=== PATIENT | male | born 1940 | race Caucasian/White ===

== ENCOUNTER → 2017-09-13 09:37 | Outpatient (CLI) | payer MEDICARE, OTHER, SELFPAY ==
[2017-09-13 13:38] LABS: Absolute Neutrophil Count 7.4 X10^3/uL (2.0-7.7); Basophil# 0.03 X10^3/uL; Basophil% 0.3 % (0-1); Eosinophil# 0.31 X10^3/uL; Hematocrit 42.7 % (40-54); Hemoglobin 14.2 g/dl (13.0-16.5); Lymphocyte % 16.5 % (19-41); Mean Corp Hgb Conc 33.3 g/gl (32-36); Mean Corpuscular Hgb 30.2 pg (27.0-32.0); Mean Corpuscular Volume 90.9 fL (80-94); Mean Platelet Vol. 10.3 fl (6.2-12.0); Monocyte# 0.77 X10^3/uL; Monocyte% 7.5 % (0-10); Neutrophil # 7.44 X10^3/uL (2.7-7.7); Neutrophil % 72.2 % (47-70); Platelet Count 278 K/mm3 (150-450); RBC Distribution Width CV 13.3 % (11.6-14.6); RBC Distribution Width SD 44.3 fl (35.1-43.9); White Blood Count 10.3 K/mm3 (4.4-11.0)
[2017-09-13 13:41] LABS: POSITIVE COUNT NO; POSITIVE DIFFERENTIAL NO; POSITIVE MORPHOLOGY NO
[2017-09-13 14:14] LABS: ALB/GLOB Ratio 1.1 RATIO (0.9-2.4); AST(SGOT) 21 U/L (15-37); Alanine Aminotransfer ALT/SGPT 31 U/L (16-61); Albumin, Serum 3.6 g/dL (3.2-5.0); Alkaline Phosphatase 76 U/L (45-117); Anion Gap 9 (5-15); BUN 14 mg/dL (7-18); BUN/Creat Ratio 12.4 RATIO (10-20); Calcium,Total 9.2 mg/dL (8.5-10.1); Chloride 101 mmol/L (98-107); Creatinine, Serum 1.13 mg/dL (0.70-1.30); EST Glomerular Filtration Rate 67 mL/min (>60); Est Glom Filt Rate - Afr Amer 81 mL/min (>60); Globulin 3.4 g/dL (2.2-4.2); Glucose 97 mg/dL (74-106); Potassium 3.9 mmol/L (3.5-5.1); Sodium Level 138 mmol/L (136-145); Thyroid Stim Hormone (TSH) 3.09 uIU/mL (0.358-3.74)
[2017-09-14 09:40] LABS: Vitamin D,25 Hydroxy 29.3 ng/mL (29.95-100.01)
== END ==
PROVIDERS: Family Provider Family Medicine Geriatric Medicine; PCP Family Medicine Geriatric Medicine; Visit Provider Family Medicine Geriatric Medicine
DX: I10 Essential (primary) hypertension (principal); E55.9 Vitamin D deficiency, unspecified
CPT/HCPCS: 36415; 80053; 82306; 84443; 85025

== ENCOUNTER → 2018-03-20 12:09 | Outpatient (CLI) | payer MEDICARE, OTHER, SELFPAY ==
[2018-03-20 13:22] LABS: Absolute Lymphocyte Count 1.35 X10^3/ul (0.83-4.51); Basophil# 0.02 X10^3/uL; Basophil% 0.2 % (0-1); Eosinophil# 0.12 X10^3/uL; Eosinophils% 1.5 % (0-5); Hematocrit 42.2 % (40-54); Hemoglobin 14.1 g/dl (13.0-16.5); Lymphocyte # 1.35 X10^3/ul (4.0); Lymphocyte % 16.7 % (19-41); Mean Corp Hgb Conc 33.4 g/gl (32-36); Mean Corpuscular Hgb 29.6 pg (27.0-32.0); Mean Corpuscular Volume 88.5 fL (80-94); Mean Platelet Vol. 10.4 fl (6.2-12.0); Monocyte% 7.4 % (0-10); Neutrophil # 5.99 X10^3/uL (2.7-7.7); Neutrophil % 74.1 % (47-70); Platelet Count 277 K/mm3 (150-450); RBC Distribution Width SD 41.8 fl (35.1-43.9); Red Blood Count 4.77 M/mm3 (4.6-6.2); White Blood Count 8.1 K/mm3 (4.4-11.0)
[2018-03-20 13:28] LABS: POSITIVE COUNT NO; POSITIVE DIFFERENTIAL NO; POSITIVE MORPHOLOGY NO
[2018-03-20 13:40] LABS: Vitamin D,25 Hydroxy 40.2 ng/mL (29.95-100.01)
[2018-03-20 13:41] LABS: ALB/GLOB Ratio 1.2 RATIO (0.9-2.4); AST(SGOT) 27 U/L (15-37); Alanine Aminotransfer ALT/SGPT 30 U/L (16-61); Albumin, Serum 3.8 g/dL (3.2-5.0); Alkaline Phosphatase 80 U/L (45-117); Anion Gap 9 (5-15); BUN 15 mg/dL (7-18); BUN/Creat Ratio 11.9 RATIO (10-20); Calcium,Total 9.3 mg/dL (8.5-10.1); Chloride 102 mmol/L (98-107); Creatinine, Serum 1.26 mg/dL (0.70-1.30); EST Glomerular Filtration Rate 59 mL/min (>60); Est Glom Filt Rate - Afr Amer 71 mL/min (>60); Globulin 3.3 g/dL (2.2-4.2); Glucose 94 mg/dL (74-106); Potassium 4.4 mmol/L (3.5-5.1); Protein, Total 7.1 g/dL (6.4-8.2); Sodium Level 138 mmol/L (136-145); Thyroid Stim Hormone (TSH) 3.21 uIU/mL (0.358-3.74)
== END ==
PROVIDERS: Family Provider Family Medicine Geriatric Medicine; PCP Family Medicine Geriatric Medicine; Visit Provider Family Medicine Geriatric Medicine
DX: I10 Essential (primary) hypertension (principal); E55.9 Vitamin D deficiency, unspecified
CPT/HCPCS: 36415; 80053; 82306; 84443; 85025

== ENCOUNTER → 2018-09-25 12:15 | Outpatient (CLI) | payer MEDICARE, OTHER, SELFPAY ==
[2016-06-30 20:22] VITALS: BMI 19.2
[2018-09-25 15:18] LABS: Absolute Lymphocyte Count 1.22 X10^3/ul (0.83-4.51); Absolute Neutrophil Count 5.8 X10^3/uL (2.0-7.7); Basophil# 0.02 X10^3/uL; Basophil% 0.3 % (0-1); Eosinophil# 0.16 X10^3/uL; Hematocrit 41.1 % (40-54); Hemoglobin 13.3 g/dl (13.0-16.5); Lymphocyte # 1.22 X10^3/ul (4.0); Lymphocyte % 15.5 % (19-41); Mean Corp Hgb Conc 32.4 g/gl (32-36); Mean Corpuscular Hgb 29.4 pg (27.0-32.0); Mean Corpuscular Volume 90.7 fL (80-94); Mean Platelet Vol. 10.2 fl (6.2-12.0); Monocyte# 0.66 X10^3/uL; Monocyte% 8.4 % (0-10); Neutrophil # 5.79 X10^3/uL (2.7-7.7); Neutrophil % 73.5 % (47-70); Platelet Count 286 K/mm3 (150-450); RBC Distribution Width CV 13.1 % (11.6-14.6); RBC Distribution Width SD 43.1 fl (35.1-43.9); Red Blood Count 4.53 M/mm3 (4.6-6.2); White Blood Count 7.9 K/mm3 (4.4-11.0)
[2018-09-25 15:23] LABS: POSITIVE COUNT NO; POSITIVE DIFFERENTIAL NO; POSITIVE MORPHOLOGY NO
[2018-09-25 15:38] LABS: Vitamin D,25 Hydroxy 32.3 ng/mL (29.95-100.01)
[2018-09-25 15:49] LABS: ALB/GLOB Ratio 1.3 RATIO (0.9-2.4); AST(SGOT) 21 U/L (15-37); Alanine Aminotransfer ALT/SGPT 26 U/L (16-61); Albumin, Serum 3.8 g/dL (3.2-5.0); Alkaline Phosphatase 80 U/L (45-117); Anion Gap 8 (5-15); BUN 17 mg/dL (7-18); BUN/Creat Ratio 13.1 RATIO (10-20); Calcium,Total 9.2 mg/dL (8.5-10.1); Chloride 105 mmol/L (98-107); EST Glomerular Filtration Rate 57 mL/min (>60); Est Glom Filt Rate - Afr Amer 68 mL/min (>60); Glucose 72 mg/dL (74-106); Potassium 4.5 mmol/L (3.5-5.1); Protein, Total 6.8 g/dL (6.4-8.2); Sodium Level 141 mmol/L (136-145); Thyroid Stim Hormone (TSH) 2.25 uIU/mL (0.358-3.74)
== END ==
PROVIDERS: Family Provider Family Medicine Geriatric Medicine; PCP Family Medicine Geriatric Medicine; Visit Provider Family Medicine Geriatric Medicine
DX: I10 Essential (primary) hypertension (principal); E55.9 Vitamin D deficiency, unspecified
CPT/HCPCS: 36415; 80053; 82306; 84443; 85025

== ENCOUNTER → 2019-03-23 09:40 | Outpatient (CLI) | payer MEDICARE, OTHER, SELFPAY ==
[2019-03-23 12:57] LABS: Absolute Lymphocyte Count 1.18 X10^3/uL (0.83-4.51); Absolute Neutrophil Count 4.8 X10^3/uL (2.0-7.7); Basophil# 0.03 X10^3/uL; Basophil% 0.4 % (0-1); Eosinophil# 0.14 X10^3/uL; Eosinophils% 2.1 % (0-5); Hematocrit 40.9 % (40-54); Hemoglobin 13.4 g/dL (13.0-16.5); Lymphocyte # 1.18 X10^3/ul (4.0); Lymphocyte % 17.6 % (19-41); Mean Corp Hgb Conc 32.8 g/dL (32-36); Mean Corpuscular Hgb 29.8 pg (27.0-32.0); Mean Corpuscular Volume 91.1 fL (80-94); Mean Platelet Vol. 10.5 fl (6.2-12.0); Monocyte# 0.51 X10^3/uL; Monocyte% 7.6 % (0-10); NRBC Flagged by Analyzer 0 % (0-5); Neutrophil # 4.82 X10^3/uL (2.7-7.7); Platelet Count 223 K/mm3 (150-450); RBC Distribution Width CV 12.8 % (11.6-14.6); RBC Distribution Width SD 42.7 fl (35.1-43.9); Red Blood Count 4.49 M/mm3 (4.6-6.2); White Blood Count 6.7 K/mm3 (4.4-11.0)
[2019-03-23 13:24] LABS: Vitamin D,25 Hydroxy 40.3 ng/mL (29.95-100.01)
[2019-03-23 14:01] LABS: ALB/GLOB Ratio 1.3 RATIO (0.9-2.4); AST(SGOT) 27 U/L (15-37); Alanine Aminotransfer ALT/SGPT 32 U/L (16-61); Albumin, Serum 3.8 g/dL (3.2-5.0); Alkaline Phosphatase 75 U/L (45-117); Anion Gap 7 (5-15); BUN 22 mg/dL (7-18); BUN/Creat Ratio 16.1 RATIO (10-20); Calcium,Total 9.4 mg/dL (8.5-10.1); Chloride 108 mmol/L (98-107); Creatinine, Serum 1.37 mg/dL (0.70-1.30); EST Glomerular Filtration Rate 53 mL/min (>60); Est Glom Filt Rate - Afr Amer 64 mL/min (>60); Glucose 100 mg/dL (74-106); Potassium 4.3 mmol/L (3.5-5.1); Protein, Total 6.8 g/dL (6.4-8.2); Sodium Level 141 mmol/L (136-145); Thyroid Stim Hormone (TSH) 3.12 uIU/mL (0.358-3.74)
== END ==
PROVIDERS: Family Provider Family Medicine Geriatric Medicine; PCP Family Medicine Geriatric Medicine; Visit Provider Family Medicine Geriatric Medicine
DX: I10 Essential (primary) hypertension (principal); E55.9 Vitamin D deficiency, unspecified
CPT/HCPCS: 36415; 80053; 82306; 84443; 85025

== ENCOUNTER → 2019-09-28 09:37 | Outpatient (CLI) | payer MEDICARE, OTHER, SELFPAY ==
[2016-06-30 20:22] VITALS: BMI 19.2
[2019-09-28 10:03] LABS: Absolute Lymphocyte Count 1.65 X10^3/uL (0.83-4.51); Absolute Neutrophil Count 6.6 X10^3/uL (2.0-7.7); Basophil# 0.04 X10^3/uL; Basophil% 0.4 % (0-1); Eosinophil# 0.16 X10^3/uL; Eosinophils% 1.7 % (0-5); Hematocrit 42.8 % (40-54); Hemoglobin 14.3 g/dL (13.0-16.5); Lymphocyte # 1.65 X10^3/ul (4.0); Lymphocyte % 17.9 % (19-41); Mean Corp Hgb Conc 33.4 g/dL (32-36); Mean Corpuscular Hgb 30.6 pg (27.0-32.0); Mean Corpuscular Volume 91.6 fL (80-94); Monocyte# 0.71 X10^3/uL; Monocyte% 7.7 % (0-10); NRBC Flagged by Analyzer 0 % (0-5); Neutrophil # 6.63 X10^3/uL (2.7-7.7); Platelet Count 255 K/mm3 (150-450); RBC Distribution Width SD 42.8 fl (35.1-43.9); Red Blood Count 4.67 M/mm3 (4.6-6.2); White Blood Count 9.2 K/mm3 (4.4-11.0)
[2019-09-28 10:37] LABS: ALB/GLOB Ratio 1.3 RATIO (0.9-2.4); AST(SGOT) 25 U/L (15-37); Alanine Aminotransfer ALT/SGPT 27 U/L (16-61); Alkaline Phosphatase 71 U/L (45-117); Anion Gap 5 (5-15); BUN 17 mg/dL (7-18); BUN/Creat Ratio 12.2 RATIO (10-20); Calcium,Total 9.6 mg/dL (8.5-10.1); Chloride 106 mmol/L (98-107); Creatinine, Serum 1.39 mg/dL (0.70-1.30); EST Glomerular Filtration Rate 52 mL/min (>60); Est Glom Filt Rate - Afr Amer 63 mL/min (>60); Glucose 102 mg/dL (74-106); Potassium 4.8 mmol/L (3.5-5.1); Sodium Level 139 mmol/L (136-145); Thyroid Stim Hormone (TSH) 3.73 uIU/mL (0.358-3.74)
== END ==
PROVIDERS: PCP Family Medicine Geriatric Medicine; Referring Provider Family Medicine Geriatric Medicine; Visit Provider Family Medicine Geriatric Medicine
DX: I10 Essential (primary) hypertension (principal); E55.9 Vitamin D deficiency, unspecified
CPT/HCPCS: 36415; 80053; 82306; 84443; 85025

== ENCOUNTER → 2020-03-28 09:46 | Outpatient (CLI) | payer MEDICARE, OTHER, SELFPAY ==
[2016-06-30 20:22] VITALS: BMI 19.2
[2020-03-28 12:35] LABS: Absolute Lymphocyte Count 1.08 X10^3/uL (0.83-4.51); Basophil# 0.03 X10^3/uL; Basophil% 0.4 % (0-1); Eosinophils% 2.9 % (0-5); Hematocrit 40.9 % (40-54); Hemoglobin 13.1 g/dL (13.0-16.5); Lymphocyte # 1.08 X10^3/ul (4.0); Lymphocyte % 15.7 % (19-41); Mean Corpuscular Hgb 29.6 pg (27.0-32.0); Mean Corpuscular Volume 92.5 fL (80-94); Mean Platelet Vol. 10.3 fl (6.2-12.0); Monocyte# 0.57 X10^3/uL; Monocyte% 8.3 % (0-10); NRBC Flagged by Analyzer 0 % (0-5); Neutrophil # 4.99 X10^3/uL (2.7-7.7); Neutrophil % 72.3 % (47-70); Platelet Count 254 K/mm3 (150-450); RBC Distribution Width CV 12.9 % (11.6-14.6); RBC Distribution Width SD 43.7 fl (35.1-43.9); Red Blood Count 4.42 M/mm3 (4.6-6.2); White Blood Count 6.9 K/mm3 (4.4-11.0)
[2020-03-28 12:45] LABS: Vitamin D,25 Hydroxy 44.8 ng/mL
[2020-03-28 13:03] LABS: ALB/GLOB Ratio 1.2 RATIO (0.9-2.4); AST(SGOT) 23 U/L (15-37); Alanine Aminotransfer ALT/SGPT 27 U/L (16-61); Albumin, Serum 3.7 g/dL (3.2-5.0); Alkaline Phosphatase 74 U/L (45-117); Anion Gap 3 (5-15); BUN 21 mg/dL (7-18); BUN/Creat Ratio 15.1 RATIO (10-20); Calcium,Total 9.2 mg/dL (8.5-10.1); Chloride 108 mmol/L (98-107); Creatinine, Serum 1.39 mg/dL (0.70-1.30); EST Glomerular Filtration Rate 52 mL/min (>60); Est Glom Filt Rate - Afr Amer 63 mL/min (>60); Glucose 88 mg/dL (74-106); Potassium 4.7 mmol/L (3.5-5.1); Protein, Total 6.7 g/dL (6.4-8.2); Sodium Level 139 mmol/L (136-145); Thyroid Stim Hormone (TSH) 2.33 uIU/mL (0.358-3.74)
== END ==
PROVIDERS: PCP Family Medicine Geriatric Medicine; Visit Provider Family Medicine Geriatric Medicine
DX: I10 Essential (primary) hypertension (principal); E55.9 Vitamin D deficiency, unspecified
CPT/HCPCS: 36415; 80053; 82306; 84443; 85025

== ENCOUNTER → 2020-09-26 09:06 | Outpatient (CLI) | payer MEDICARE, OTHER, SELFPAY ==
[2016-06-30 20:22] VITALS: BMI 19.2
[2020-09-26 12:43] LABS: Absolute Lymphocyte Count 1.26 X10^3/uL (0.83-4.51); Absolute Neutrophil Count 9.7 X10^3/uL (2.0-7.7); Basophil# 0.03 X10^3/uL; Basophil% 0.3 % (0-1); Eosinophil# 0.07 X10^3/uL; Eosinophils% 0.6 % (0-5); Hematocrit 43.1 % (40-54); Hemoglobin 14.1 g/dL (13.0-16.5); Lymphocyte # 1.26 X10^3/ul (4.0); Lymphocyte % 10.6 % (19-41); Mean Corp Hgb Conc 32.7 g/dL (32-36); Mean Corpuscular Hgb 29.1 pg (27.0-32.0); Mean Platelet Vol. 10.4 fl (6.2-12.0); Monocyte# 0.77 X10^3/uL; Monocyte% 6.5 % (0-10); NRBC Flagged by Analyzer 0 % (0-5); Neutrophil # 9.74 X10^3/uL (2.7-7.7); Neutrophil % 81.5 % (47-70); Platelet Count 310 K/mm3 (150-450); RBC Distribution Width CV 12.5 % (11.6-14.6); Red Blood Count 4.84 M/mm3 (4.6-6.2); White Blood Count 11.9 K/mm3 (4.4-11.0)
[2020-09-26 13:15] LABS: Vitamin D,25 Hydroxy 35.6 ng/mL
[2020-09-26 13:17] LABS: ALB/GLOB Ratio 1.2 RATIO (0.9-2.4); AST(SGOT) 25 U/L (15-37); Alanine Aminotransfer ALT/SGPT 35 U/L (16-61); Albumin, Serum 3.8 g/dL (3.2-5.0); Alkaline Phosphatase 84 U/L (45-117); Anion Gap 8 (5-15); BUN 18 mg/dL (7-18); BUN/Creat Ratio 15.3 RATIO (10-20); Calcium,Total 9.5 mg/dL (8.5-10.1); Chloride 105 mmol/L (98-107); Creatinine, Serum 1.18 mg/dL (0.70-1.30); EST Glomerular Filtration Rate 63 mL/min (>60); Est Glom Filt Rate - Afr Amer 76 mL/min (>60); Globulin 3.2 g/dL (2.2-4.2); Glucose 103 mg/dL (74-106); Potassium 4.5 mmol/L (3.5-5.1); Sodium Level 137 mmol/L (136-145); Thyroid Stim Hormone (TSH) 3.33 uIU/mL (0.358-3.74)
== END ==
PROVIDERS: PCP Family Medicine Geriatric Medicine; Visit Provider Family Medicine Geriatric Medicine
DX: I10 Essential (primary) hypertension (principal); E55.9 Vitamin D deficiency, unspecified
CPT/HCPCS: 36415; 80053; 82306; 84443; 85025

== ENCOUNTER → 2021-03-30 09:43 | Outpatient (CLI) | payer MEDICARE, OTHER, SELFPAY ==
[2021-03-30 11:45] LABS: Absolute Lymphocyte Count 1.61 X10^3/uL (0.83-4.51); Basophil# 0.04 X10^3/uL; Basophil% 0.5 % (0-1); Eosinophil# 0.27 X10^3/uL; Eosinophils% 3.1 % (0-5); Hematocrit 43.1 % (40-54); Hemoglobin 14.3 g/dL (13.0-16.5); Lymphocyte # 1.61 X10^3/ul (0.83-4.51); Lymphocyte % 18.7 % (19-41); Mean Corp Hgb Conc 33.2 g/dL (32-36); Mean Corpuscular Hgb 29.5 pg (27.0-32.0); Mean Platelet Vol. 10.3 fl (6.2-12.0); Monocyte# 0.64 X10^3/uL; Monocyte% 7.4 % (0-10); NRBC Flagged by Analyzer 0 % (0-5); Neutrophil % 69.8 % (47-70); Platelet Count 309 K/mm3 (150-450); RBC Distribution Width CV 12.5 % (11.6-14.6); RBC Distribution Width SD 41.1 fl (35.1-43.9); Red Blood Count 4.84 M/mm3 (4.6-6.2); White Blood Count 8.6 K/mm3 (4.4-11.0)
[2021-03-30 12:04] LABS: Vitamin D,25 Hydroxy 39.7 ng/mL
[2021-03-30 12:28] LABS: ALB/GLOB Ratio 1.1 RATIO (0.9-2.4); AST(SGOT) 29 U/L (15-37); Alanine Aminotransfer ALT/SGPT 32 U/L (16-61); Albumin, Serum 3.7 g/dL (3.2-5.0); Alkaline Phosphatase 89 U/L (45-117); Anion Gap 8 (5-15); BUN 22 mg/dL (7-18); BUN/Creat Ratio 16.5 RATIO (10-20); Calcium,Total 9.4 mg/dL (8.5-10.1); Chloride 104 mmol/L (98-107); Creatinine, Serum 1.33 mg/dL (0.70-1.30); EST Glomerular Filtration Rate 55 mL/min (>60); Est Glom Filt Rate - Afr Amer 66 mL/min (>60); Globulin 3.5 g/dL (2.2-4.2); Glucose 102 mg/dL (74-106); Potassium 4.5 mmol/L (3.5-5.1); Protein, Total 7.2 g/dL (6.4-8.2); Sodium Level 139 mmol/L (136-145); Thyroid Stim Hormone (TSH) 3.01 uIU/mL (0.358-3.74)
== END ==
PROVIDERS: PCP Family Medicine Geriatric Medicine; Visit Provider Family Medicine Geriatric Medicine
DX: I10 Essential (primary) hypertension (principal); E55.9 Vitamin D deficiency, unspecified
CPT/HCPCS: 36415; 80053; 82306; 84443; 85025

== ENCOUNTER 2021-07-27 10:11 | Outpatient (CLI) | payer MEDICARE, OTHER, SELFPAY ==
--- NOTE | 2021-07-27 10:23 | RAD_ITS ---
STUDY: X-RAY CHEST REASON FOR EXAM: Male, 80 years old. COUGH TECHNIQUE: PA and lateral views of the chest. COMPARISON: 07/06/1969 FINDINGS: There is hyperinflation of the lungs consistent with chronic obstructive lung disease (COPD). There is no demonstrated pleural abnormality. Normal size heart. Normal mediastinum and konstantin. Normal visualized pulmonary arteries. Normal visualized aortic arch and descending thoracic aorta. Normal visualized thoracic spine. Normal visualized ribs, clavicles, and shoulders. There is no demonstrated abnormality of the visualized soft tissue structures of the upper abdomen. RAD/Chest PA and Lateral IMPRESSION: Emphysema without pneumonia or atelectasis. Electronically Signed: Roberth Bliss MD at 17:00 EST Tel , Service support ,
== END 2021-07-27 23:59 | disposition short-term general hospital (02) ==
PROVIDERS: PCP Family Medicine Geriatric Medicine; Referring Provider Family Medicine Geriatric Medicine; Visit Provider Family Medicine Geriatric Medicine
DX: J43.9 Emphysema, unspecified (principal); R68.83 Chills (without fever)
CPT/HCPCS: 71046; 87635; 87804; 87807; C9803; U0003; U0005

== ENCOUNTER 2021-08-20 11:04 | Outpatient (CLI) | payer MEDICARE, OTHER, SELFPAY ==
[2021-08-20 12:38] LABS: Absolute Lymphocyte Count 0.79 X10^3/uL (0.83-4.51); Absolute Neutrophil Count 7.3 X10^3/uL (2.0-7.7); Basophil# 0.06 X10^3/uL; Basophil% 0.6 % (0-1); Eosinophil# 0.45 X10^3/uL; Eosinophils% 4.8 % (0-5); Hematocrit 42.2 % (40-54); Hemoglobin 14.3 g/dL (13.0-16.5); Lymphocyte # 0.79 X10^3/ul (0.83-4.51); Lymphocyte % 8.5 % (19-41); Mean Corp Hgb Conc 33.9 g/dL (32-36); Mean Corpuscular Volume 88.5 fL (80-94); Mean Platelet Vol. 9.6 fl (6.2-12.0); Monocyte# 0.63 X10^3/uL; Monocyte% 6.8 % (0-10); NRBC Flagged by Analyzer 0 % (0-5); Neutrophil # 7.31 X10^3/uL (2.7-7.7); Neutrophil % 78.5 % (47-70); Platelet Count 249 K/mm3 (150-450); RBC Distribution Width CV 12.6 % (11.6-14.6); RBC Distribution Width SD 40.7 fl (35.1-43.9); Red Blood Count 4.77 M/mm3 (4.6-6.2); White Blood Count 9.3 K/mm3 (4.4-11.0)
[2021-08-20 12:45] LABS: D-Dimer Quantitative (DVT/PE) 0.67 FEU/ug/m (0.27-0.49)
[2021-08-20 12:52] LABS: Anion Gap 5 (5-15); BUN 19 mg/dL (7-18); BUN/Creat Ratio 14.4 RATIO (10-20); CPK Total, Creatine Kinase 43 U/L (39-308); Calcium,Total 9.4 mg/dL (8.5-10.1); Chloride 102 mmol/L (98-107); Creatinine, Serum 1.32 mg/dL (0.70-1.30); EST Glomerular Filtration Rate 55 mL/min (>60); Est Glom Filt Rate - Afr Amer 67 mL/min (>60); Glucose 100 mg/dL (74-106); Potassium 4.5 mmol/L (3.5-5.1); Sodium Level 134 mmol/L (136-145); Troponin-I HS 9 pg/mL (3.0-78.0)
[2021-08-20 13:11] LABS: BNP,B-Type NATRIURETIC PEPTIDE 20.3 pg/mL (0-100)
[2021-08-21 13:17] LABS: Myoglobin, Serum 68 ng/mL (28-72)
== END 2021-08-20 23:59 | disposition home or self-care (01) ==
LOC: POLAB3 11:06
PROVIDERS: PCP Family Medicine Geriatric Medicine; Visit Provider Family Medicine Geriatric Medicine
DX: R06.02 Shortness of breath (principal); R07.9 Chest pain, unspecified
CPT/HCPCS: 36415; 80048; 82550; 83874; 83880; 84484; 85025; 85379

== ENCOUNTER 2021-08-20 11:07 | Outpatient (CLI) | payer MEDICARE, OTHER, SELFPAY ==
--- NOTE | 2021-08-20 11:13 | CT_ITS ---
STUDY: CTA CHEST REASON FOR EXAM: Male, 80 years old. SUSPECTED PULMONARY EMBOLISM RADIATION DOSAGE (If Supplied By Facility): CTDIvol = ( 6.05 ) mGy, DLP = ( 173.79 ) mGycm TECHNIQUE: The examination was performed with the intravenous administration of IV 100mL Isovue-370. Post-processing of the angiographic images was performed, with multiplanar reformation and 3D reconstruction. Individualized dose optimization techniques were used for this CT. COMPARISON: None. FINDINGS: Normal enhancement of the main pulmonary artery and right and left pulmonary arteries. Normal enhancement of the bilateral peripheral pulmonary arteries. There is no demonstrated pulmonary embolism. Normal thoracic aorta and visualized great vessels. There is no demonstrated aortic dissection. There are calcifications of the coronary arteries. Normal mediastinum. Normal hilar regions. Normal visualized trachea and bronchi. Hyperinflation. There is a 1.2 cm x 0.9 cm spiculated nodule in the anterior aspect of the right upper lobe. This may represent a focal liver scarring although neoplastic process should be ruled out. Correlation with a PET scan is recommended. There is evidence of scarring at the lung bases. Diffuse emphysematous changes with bulla formation in the lateral aspect of the right upper lobe. This measures 2.1 cm. Scattered bulla are also seen throughout both lungs. Normal pleura. Normal chest wall structures. There are degenerative changes of thoracic spine. Normal visualized upper abdomen. CT/CTA Chest W/WO Contrast IMPRESSION: No evidence of pulmonary embolism. 1.2 cm x 0.9 cm per dilated nodule in the anterior aspect of the right upper lobe. Correlation with a PET scan is recommended. Emphysematous changes with bullous formation and scarring. Electronically Signed: Shashank Alberto MD at 12:31 EST ,
[2021-08-20 11:36] LABS: CREATININE FINGERSTICK 1.2 mg/dL (0.70-1.30); EGFR FINGERSTICK > 60.0000 mL/min (>60)
== END 2021-08-20 23:59 | disposition home or self-care (01) ==
PROVIDERS: PCP Family Medicine Geriatric Medicine; Referring Provider Family Medicine Geriatric Medicine; Visit Provider Family Medicine Geriatric Medicine
DX: Z01.812 Encounter for preprocedural laboratory examination (principal); R07.9 Chest pain, unspecified; R06.02 Shortness of breath
CPT/HCPCS: 36415; 71275; 80048; 82550; 83874; 83880; 84484; 85025; 85379; Q9967; A4216

== ENCOUNTER 2021-08-21 10:05 | Outpatient (CLI) | payer MEDICARE, OTHER, SELFPAY | END 2021-08-21 23:59 | disposition home or self-care (01) | LOC: PSN 10:06 | PROVIDERS: PCP Family Medicine Geriatric Medicine; Referring Provider Family Medicine Geriatric Medicine; Visit Provider Family Medicine Geriatric Medicine | DX: R68.83 Chills (without fever) (principal); Z20.822 Contact with and (suspected) exposure to COVID-19 | CPT/HCPCS: 87635; 87804; 87807; C9803; U0003; U0005 ==

== ENCOUNTER 2021-08-26 12:27 | Outpatient (CLI) | payer MEDICARE, OTHER, SELFPAY ==
--- NOTE | 2021-08-26 13:00 | PET_ITS ---
EXAMINATION: FDG PET/CT INDICATIONS: An 80-year-old male with reported history of pulmonary nodularity. COMPARISON EXAMINATION: CT of the chest dated 08/20/21 INDEX LESION SIZE SUV INTERPRETATION Right upper lung-right upper lobe 7.9-mm (frame 203) 3.5 Fulfills quantitative criteria for viable neoplasm, histopathologic analysis recommended Proximal ascending colon, nodular 10.9-mm (frame 88) 14.7 Warrants further radiologic investigation secondary to quantitative degree of uptake NON-INDEX LESION SIZE SUV INTERPRETATION Bilateral thoracic perihilum 5.7-mm (largest) (frame 210) 3.1 (max) Quantitative criteria for viable neoplasm are not fulfilled TECHNIQUE: Following the intravenous administration of 13.9 mCi of F-18 deoxyglucose via the left antecubital fossa, multiplanar image acquisitions of the neck, chest, abdomen and pelvis to level of mid thigh, obtained at one hour post radiopharmaceutical administration contemporaneously interpreted with the current CT of the neck, chest, abdomen and pelvis to level of mid thigh, dated 08/26/[address] of the chest dated 08/20/21 reveal: SERUM GLUCOSE LEVEL: 98 mg/dl. HEIGHT: 68 inches. WEIGHT: 136 lbs. FINDINGS: 1. Focal increased glucose metabolism is defined in the right mid anterolateral lung-right upper lobe generating a calculated maximal standard uptake value of 3.5. The maximal axial diameter of the speculated non-calcified density on review of CT of the chest dated 08/26/21 is 7.9-mm. 2. A distinct nodular focus of increased glucose concentration is observed in the right upper pelvic mesentery in the region of the proximal ascending colon superimposed on segmental tracer uptake noted throughout the abdominal-pelvic mesentery. The calculated maximal standard uptake value is 14.7. The maximal axial diameter of the corresponding metabolic abnormality on review of CT of the pelvis dated 08/26/21 is 10.9-mm (AP). 3. There is an increase in fluorine labeled glucose metabolism manifest in the bilateral thoracic perihilum rendering a calculated maximal standard uptake value of 3.1. The maximal axial diameter of the most conspicuous metabolic abnormality is 5.7-mm (AP). 4. Normal physiologic distribution of the radiopharmaceutical is apparent in the hepatic (2.4) and splenic parenchyma, both renal units, bladder and visualized intestinal tract. The visualized portion of the cerebral cortical-subcortical structures demonstrate symmetric and preserved glucose metabolism. Diffuse radiopharmaceutical concentration is noted in all four quadrants of the abdomen and pelvis. Prominent radiopharmaceutical concentration is observed in the anterior neck, laryngeal structures associated with the cricopharyngeus musculature most consistent with muscle tension artifact. A linear increase in radiopharmaceutical concentration extends from the proximal to distal esophagus most consistent with physiologic tracer uptake. Pertinent CT findings are as follows: CHEST: Paraseptal emphysematous changes are defined in the bilateral upper-mid lung zones. Additional parenchymal densities noted in the right and left hemithorax demonstrate no evidence of quantitatively significant increased glucose metabolism. There is atherosclerotic calcification defined in the thoracic aorta without evidence of dilatation-aneurysm formation. Coronary arterial calcification is observed. A hiatal hernia is defined. Bilateral axillar soft tissue with fatty hilus is non-glucose avid. ABDOMEN AND PELVIS: There is atherosclerotic calcification defined in the abdominal aorta without evidence of dilatation-aneurysm formation. Abdominal-pelvic arterial calcification is defined. Exophytic cyst formation is visualized in the left kidney posteriorly. Colonic diverticulosis is noted without evidence of diverticulitis. Bilateral inguinal soft tissue with fatty hilus formation reveals no evidence of increased tracer uptake. SKELETAL: Degenerative changes are noted in the cervical, thoracic and lumbar spine without evidence of increased radiopharmaceutical concentration. PET/PET/CT Tumor Base -Thigh Init IMPRESSION: 1. Focal increased glucose metabolism manifest in the right upper lung-right upper lobe fulfills quantitative criteria for viable neoplasm. Histopathologic analysis is recommended. (Starks et al, Annals of Internal Medicine, 138:724, 2003). 2. The distinct nodular focus of increased tracer uptake observed in the right upper pelvic mesentery associated with the proximal ascending colon may be further investigated with CT of the abdomen and pelvis with oral and intravenous contrast to exclude soft tissue mass formation. (Dobert et al, Journal of Nuclear Medicine, 30:S276, 2003). 3. Bilateral thoracic perihilar increased tracer uptake does not fulfill strict quantitative criteria for malignant transformation. (Nolan meier al, Journal of Clinical Oncology 16:2142, 1998). Electronic Signature Roberth Oswald D.O. Accurate Quantification of SUVs for this report are calculated using the exclusive [employer], ([place]. Patent No. 10, 674, 983). Standardization and correction of the FDG SUV metric exclusively available with [employer] intellectual property, allow for vendor non-specific objective quantitative sequential FDG PET-CT comparison and otherwise unobtainable optimization of the sensitivity and specificity of the examination. Electronically Signed: Roberth Oswald DO at 18:59 EST ,
== END 2021-08-26 23:59 | disposition home or self-care (01) ==
LOC: ONC 12:28
PROVIDERS: PCP Family Medicine Geriatric Medicine; Referring Provider Family Medicine Geriatric Medicine; Visit Provider Family Medicine Geriatric Medicine
DX: R91.1 Solitary pulmonary nodule (principal)
CPT/HCPCS: 78815; A9552

== ENCOUNTER 2021-09-02 10:01 | Outpatient (CLI) | payer MEDICARE, OTHER, SELFPAY ==
[2021-09-02 12:05] LABS: Prothrombin Time (Protime)PT. 12.5 SECONDS (11.7-14.9)
[2021-09-02 12:06] LABS: Partial Thromboplast Time 27.4 Seconds (24.1-36.2)
[2021-09-02 12:08] LABS: Absolute Lymphocyte Count 1.92 X10^3/uL (0.83-4.51); Absolute Neutrophil Count 9.5 X10^3/uL (2.0-7.7); Basophil# 0.06 X10^3/uL; Basophil% 0.5 % (0-1); Eosinophil# 0.16 X10^3/uL; Eosinophils% 1.3 % (0-5); Hematocrit 44.2 % (40-54); Hemoglobin 14.8 g/dL (13.0-16.5); Lymphocyte # 1.92 X10^3/ul (0.83-4.51); Mean Corp Hgb Conc 33.5 g/dL (32-36); Mean Corpuscular Hgb 30.5 pg (27.0-32.0); Mean Corpuscular Volume 91.1 fL (80-94); Mean Platelet Vol. 9.5 fl (6.2-12.0); Monocyte# 0.92 X10^3/uL; Monocyte% 7.2 % (0-10); NRBC Flagged by Analyzer 0 % (0-5); Neutrophil % 74.4 % (47-70); Platelet Count 471 K/mm3 (150-450); RBC Distribution Width CV 13.1 % (11.6-14.6); RBC Distribution Width SD 44.1 fl (35.1-43.9); Red Blood Count 4.85 M/mm3 (4.6-6.2); White Blood Count 12.8 K/mm3 (4.4-11.0)
== END 2021-09-02 23:59 | disposition home or self-care (01) ==
LOC: POLAB3 10:02
PROVIDERS: PCP Family Medicine Geriatric Medicine; Visit Provider Family Medicine Geriatric Medicine
DX: R22.2 Localized swelling, mass and lump, trunk (principal)
CPT/HCPCS: 36415; 85025; 85610; 85730

== ENCOUNTER → 2021-09-07 | Outpatient (CLI) | payer MEDICARE, OTHER, SELFPAY ==
[2021-09-07] VITALS (12 sets, daily range): BP systolic 118–189; BP diastolic 72–104; PULSE 72–105; RESP 12–23; TEMP 36.6; O2SAT 88–98; BMI 20.7
--- NOTE | 2021-09-07 | ASPIGT_PTH ---
PATIENT: BERNABE NGUYEN LOC: [place] U#:[id number] AGE/SX: 80/M ROOM: RE09/07/[address]: Dr. Albino Cedeno MD : 1940 BED: DIS: 09/07/2021 SPEC #: [id number] RECD: 09/07/21 13:46 STATUS: PATSY YUSUF #: [id number] MOSES: 09/07/21 00:[address]: Albino Cedeno Chi DEPT: SURGICAL PATHOLOGY RECD BY: Keon Ferris Tissues: Lung, NOS Procedures: FNA Specimen Adequacy Special Stain Group II Surgery Specimen Level IV Imprint (control) HEADER OPERATION: CT-guided right upper lobe lung biopsy PRE-OP DIAGNOSIS: Right upper lobe lung mass TISSUE SUBMITTED: Right upper lobe lung mass MICROSCOPIC DIAGNOSIS Right upper lobe lung mass, CT-guided core biopsy: Negative for malignant cells. See comment. ALEXA:kylie 09/08/2021 COMMENT The specimen is evaluated at the time of biopsy by Dr. Flores. Immediate Evaluation = Negative for malignant cells. Cell block prepared for submitted specimen is acellular. Smears are negative for malignant cells. Correlation with clinical, radiologic findings and appropriate follow up are necessary. This case was reviewed and diagnosis discussed with Dr. Alvarez on 10/08/2021. MICROSCOPIC DESCRIPTION Slides are reviewed. GROSS DESCRIPTION Received in fixative is one container labeled with the patient's name and designated RUL lung. The specimen consists of a scant amount of soft tissue. The specimen is totally submitted for cell block preparation. Two touch imprints are prepared at the time of core biopsy. / SJ:rg 09/07/2021 TC:4 CPT: 74660, 57322
--- NOTE | 2021-09-07 07:48 | CT_ITS ---
PROCEDURE: CT GUIDED CORE NEEDLE BIOPSY OF A right upper lobe LUNG LESION INDICATION: Male, 80 years old. LUNG MASS PHYSICIAN: Dr. LAKSHMI RAMIREZ. CONSENT: Written informed consent was obtained having explained the risks, benefits and alternatives in detail with the patient who accepted the risks and agreed to proceed. Laboratory review and clinical assessment was performed. CONSCIOUS SEDATION PROTOCOL: The Drugs used were: 1 mg Versed, IV., and 25 mcg Fentanyl, IV. The sedation time was: 24 minutes. Conscious sedation was started at 9:05 AM and terminated at 929 The conscious sedation protocol was independently monitored. RADIATION DOSAGE (If Supplied By Facility): CTDIvol = ( 19.5 ) mGy, DLP = ( 245.83 ) mGycm Individualized dose optimization techniques were used for this CT. TECHNIQUE: The patient was placed in the supine position. A noncontrast CT was performed to localize the lesion in the right upper lobe anteriorly . The skin surface was prepped and draped in a sterile fashion. 1% lidocaine was used for local anesthesia. Using CT guidance, a 20-gauge coaxial biopsy device was advanced to the periphery of the lesion. A total of 5 core specimens were obtained. The specimens were placed in a formalin solution. A post procedure CT demonstrated no adverse sequelae or pneumothorax. The patient tolerated the procedure well without adverse event. A negative biopsy does not exclude malignancy. Further imaging or clinical followup based on patient condition and degree of clinical suspicion for malignancy. Suggest rebiopsy, if biopsy results do not match with clinical scenario. CT/Biopsy/Inj or Needle Placement IMPRESSION: 1. CT directed core needle biopsy of the right upper lobe pulmonary nodule using CT image guidance with image documentation as described. Pathology results are pending. 2. Conscious Sedation protocol utilized with independent monitoring. Electronically Signed: Shashank Alberto MD at 10:10 EST ,
[2021-09-07] MEDS: Midazolam 2 MG/2 ML Syringe IV (09:05)
[2021-09-07] MEDS: fentaNYL 100 MCG/2 ML Ampul IV (09:05)
[2021-09-07] MEDS: Lidocaine 2% (20 ml mdv) 20 ML Vial INFILT (09:15)
--- NOTE | 2021-09-07 09:35 | RAD_ITS ---
STUDY: X-RAY CHEST REASON FOR EXAM: Male, 80 years old. Pneumothorax -- Immediately post lung biopsy TECHNIQUE: AP inspiration and expiration views. COMPARISON: Comparison is made with prior study dated 03/27/2022. FINDINGS: Tiny right apical pneumothorax on the immediate post right lung biopsy radiographs. Airspace disease in the right upper lobe suggestive of a postbiopsy bleed. RAD/Chest Insp/Exp 2 View IMPRESSION: Small right apical pneumothorax. Airspace disease suggestive of postbiopsy bleed. Electronically Signed: Shashank Alberto MD at 10:11 EST ,
--- NOTE | 2021-09-07 11:15 | RAD_ITS ---
STUDY: X-RAY CHEST REASON FOR EXAM: Male, 80 years old. Pneumothorax -- 2 hours post lung biopsy TECHNIQUE: AP expiration and inspiration views. COMPARISON: Comparison is made with prior study done earlier in the day. FINDINGS: Two-hour post right lung biopsy. Tiny right apical pneumothorax. Persistent alveolar infiltrate in the right upper lobe. Patient is asymptomatic. RAD/Chest Insp/Exp 2 View IMPRESSION: Tiny residual right apical pneumothorax. Stable airspace disease in the right upper lobe. The patient is asymptomatic. Electronically Signed: Shashank Alberto MD at 9:46 EST ,
== END | disposition home or self-care (01) ==
LOC: CT 07:47
PROVIDERS: PCP Family Medicine Geriatric Medicine; Referring Provider Family Medicine Geriatric Medicine; Visit Provider Family Medicine Geriatric Medicine
DX: R91.1 Solitary pulmonary nodule (principal); J44.9 Chronic obstructive pulmonary disease, unspecified
CPT/HCPCS: 32408; 71046; 77012; 88172; 88305; 88313; 99156; J7040; A4216

== ENCOUNTER 2021-10-05 09:15 | Outpatient (CLI) | payer MEDICARE, OTHER, SELFPAY ==
[2021-10-05 10:56] LABS: Absolute Lymphocyte Count 1.38 X10^3/uL (0.83-4.51); Absolute Neutrophil Count 6.6 X10^3/uL (2.0-7.7); Basophil# 0.04 X10^3/uL; Basophil% 0.5 % (0-1); Eosinophil# 0.15 X10^3/uL; Eosinophils% 1.7 % (0-5); Hematocrit 40.1 % (40-54); Hemoglobin 13.4 g/dL (13.0-16.5); Lymphocyte # 1.38 X10^3/ul (0.83-4.51); Lymphocyte % 15.7 % (19-41); Mean Corp Hgb Conc 33.4 g/dL (32-36); Mean Corpuscular Hgb 30.5 pg (27.0-32.0); Mean Corpuscular Volume 91.1 fL (80-94); Monocyte# 0.64 X10^3/uL; Monocyte% 7.3 % (0-10); NRBC Flagged by Analyzer 0 % (0-5); Neutrophil # 6.55 X10^3/uL (2.7-7.7); Neutrophil % 74.3 % (47-70); Platelet Count 290 K/mm3 (150-450); RBC Distribution Width CV 13.1 % (11.6-14.6); RBC Distribution Width SD 43.8 fl (35.1-43.9); White Blood Count 8.8 K/mm3 (4.4-11.0)
[2021-10-05 11:33] LABS: ALB/GLOB Ratio 1.4 RATIO (0.9-2.4); AST(SGOT) 19 U/L (15-37); Alanine Aminotransfer ALT/SGPT 25 U/L (16-61); Albumin, Serum 3.7 g/dL (3.2-5.0); Alkaline Phosphatase 70 U/L (45-117); Anion Gap 6 (5-15); BUN 17 mg/dL (7-18); BUN/Creat Ratio 12.6 RATIO (10-20); Calcium,Total 9.2 mg/dL (8.5-10.1); Chloride 105 mmol/L (98-107); Creatinine, Serum 1.35 mg/dL (0.70-1.30); EST Glomerular Filtration Rate 54 mL/min (>60); Est Glom Filt Rate - Afr Amer 65 mL/min (>60); Globulin 2.7 g/dL (2.2-4.2); Glucose 114 mg/dL (74-106); Potassium 4.1 mmol/L (3.5-5.1); Protein, Total 6.4 g/dL (6.4-8.2); Sodium Level 139 mmol/L (136-145); Thyroid Stim Hormone (TSH) 3.43 uIU/mL (0.358-3.74)
== END 2021-10-05 23:59 | disposition home or self-care (01) ==
LOC: POLAB3 09:18
PROVIDERS: PCP Family Medicine Geriatric Medicine; Visit Provider Family Medicine Geriatric Medicine
DX: I10 Essential (primary) hypertension (principal); E55.9 Vitamin D deficiency, unspecified
CPT/HCPCS: 36415; 80053; 82306; 84443; 85025

== ENCOUNTER 2021-10-05 10:09 | Outpatient (CLI) | payer MEDICARE, OTHER, SELFPAY ==
--- NOTE | 2021-10-05 10:15 | CT_ITS ---
HISTORY: ABD AND PELVIC SWELLING/MASS AND LUMP. TECHNIQUE: Helically acquired images were obtained of the abdomen and pelvis with IV contrast. A radiation dose optimization technique was used for this scan. Contrast dosage and agent: 100 mL Isovue 300 IV/oral Gastrografin. # of images incl. paperwork: [id number]. COMPARISON: PET-CT 08/26/2021. FINDINGS: LOWER CHEST: Emphysema and scarring in the lung bases. Calcified right lower lobe granuloma. BOWEL: Duodenal diverticula present. Bowel nondilated. Appendectomy. Extensive colonic diverticulosis without focal pericolonic inflammation. Underdistended proximal ascending colon, limiting evaluation for intraluminal mass. No enlarged pericolonic lymph nodes. LIVER: No enhancing mass. GALLBLADDER/BILIARY TREE: Gallbladder present. SPLEEN: Calcified granuloma. KIDNEYS: No hydronephrosis. Small cysts measuring up to 2.5 cm on the left and 1.5 cm on the right. PANCREAS/ADRENAL GLANDS: Unremarkable. PERITONEUM: No significant ascites. VESSELS: No abdominal aortic aneurysm. Moderate atherosclerosis of the abdominal aorta and its major branches. PELVIC ORGANS: Bladder diverticula. Mildly enlarged prostate gland with impression on the bladder base. ABDOMINAL WALL: Small fat-containing right inguinal hernia. BONES: Intact. Mild degenerative change without suspicious osteoblastic or osteolytic lesion. CT/Abdomen/Pelvis WITH Contrast IMPRESSION: Colonic diverticulosis without acute diverticulitis. Underdistended proximal colon, limiting its evaluation. No pathologically enlarged pericolonic lymph nodes identified. Small bilateral renal cysts. Bladder diverticula. Individualized dose optimization techniques were used for this CT. at 1253 Reported and signed by: Kisha Meyers MD Electronically Signed: Kisha Meyers MD at 12:52 EDT ,
== END 2021-10-05 23:59 | disposition home or self-care (01) ==
LOC: CT 10:11
PROVIDERS: PCP Family Medicine Geriatric Medicine; Referring Provider Family Medicine Geriatric Medicine; Visit Provider Family Medicine Geriatric Medicine
DX: R19.09 Other intra-abdominal and pelvic swelling, mass and lump (principal); I10 Essential (primary) hypertension; E55.9 Vitamin D deficiency, unspecified
CPT/HCPCS: 36415; 74177; 80053; 82306; 84443; 85025; Q9967

== ENCOUNTER → 2021-10-14 | Outpatient (CLI) | payer MEDICARE, OTHER, SELFPAY ==
[2021-10-14] VITALS (8 sets, daily range): BP systolic 116–161; BP diastolic 64–91; PULSE 65–85; RESP 12–18; TEMP 36.9; O2SAT 95–98; BMI 19.8
--- NOTE | 2021-10-14 | ASPIGT_PTH ---
PATIENT: BERNABE NGUYEN LOC: [facility]#:[id number] AGE/SX: 80/M ROOM: RE10/14/[address]: Dr. Amrit Alvarez MD : 1940 BED: DIS: 10/14/2021 SPEC #: [id number] RECD: 10/14/21 10:27 STATUS: PATSY REJohnna #: [id number] MOSES: 10/14/21 00:[address]: Amrit Alvarez DEPT: SURGICAL PATHOLOGY RECD BY: Keon Ferris ENTERED: 10/14/21 10:27 SP TYPE: ASP RAD OTHR DR: Dr. Albino Cedeno MD Tissues: Lung, NOS Procedures: FNA Specimen Adequacy Special Stain Group II Special Stain Group I Surgery Specimen Level IV GMS Stain (control) Imprint (control) HEADER OPERATION: CT-guided right lung biopsy PRE-OP DIAGNOSIS: Right upper lung nodule TISSUE SUBMITTED: Right upper lung nodule 20-gauge MICROSCOPIC DIAGNOSIS Right upper lung nodule, CT-guided core biopsy: Lung parenchymal tissue, negative for malignancy. See comment. SJ:rg 10/15/2021 COMMENT The specimen is evaluated at the time of biopsy by Dr. Flores. Immediate Evaluation = Negative for malignant cells. Rare intraalveolar macrophages are noted. Special stain for fungi is negative for organisms; matched control is appropriate. Please make reference to previous specimen ([id number]) right upper lobe lung mass, CT-guided core biopsy with diagnosis of negative for malignant cells. This case is discussed with Dr. Alvarez on 10/15/21. Case has been reviewed in consultation with Dr. De Leon who concurs with the above diagnosis. IDC:AM MICROSCOPIC DESCRIPTION Slides are reviewed. GROSS DESCRIPTION Received in fixative is one container labeled with the patient's name and designated right lung, CT-guided core biopsy. The specimen consists of minute fragments of martinez soft tissue measuring in aggregate 0.2 x 0.1 x 0.1 cm. The entire specimen is submitted in one cassette. Two touch imprints are prepared at the time of core biopsy. / Andrzej 10/14/2021 TC:5 CPT: 30333, 82880, 45326
--- NOTE | 2021-10-14 07:56 | CT_ITS ---
STUDY: CT CHEST WITHOUT CONTRAST REASON FOR EXAM: Male, 80 years old. LUNG NODULE; TO BE DONE W/ BIOPSY RADIATION DOSAGE (If Supplied By Facility): CTDIvol = ( 5.42 ) mGy, DLP = ( 232.10 ) mGycm TECHNIQUE: Transaxial imaging was performed without intravenous contrast leaked out. Individualized dose optimization techniques were used for this CT. COMPARISON: None. FINDINGS: Small bilateral axillary lymph nodes. Hyperinflation. Emphysematous changes worse in the upper lobes. There is a 2.3 cm x 1.4 cm bulla in the peripheral lateral aspect of the right upper lobe. There is also evidence of a 2.3 side of by 2 cm bulla in the peripheral posterior lateral aspect of the right upper lobe. Within its dependent portion, there is a 1.2 cm rounded soft tissue nodule. This may represent a small fungus ball. There is evidence of a architectural distortion in the anterior aspect of the right upper lobe. This corresponds to the increased uptake on the recent PET scan. There is no demonstrated pleural abnormality. Normal heart and pericardium. Coronary artery calcification There are multiple small lymph nodes within the mediastinum, which are normal in size and morphology most compatible with reactive lymph hyperplasia. Calcified right hilar lymph nodes. Normal enhanced and unenhanced pulmonary arteries. There is atherosclerotic calcification of the aortic arch with tortuosity and elongation of the aortic arch and descending thoracic aorta. There are multi-level degenerative changes of the thoracic spine. There is no demonstrated abnormality of the visualized upper abdomen. CT/Chest without Contrast IMPRESSION: Focal air of the architectural distortion in the anterior aspect of the right upper lobe corresponding to the abnormal uptake on the recent PET scan. Bullous formation in the peripheral lateral aspect of the right upper lobe posteriorly containing a 1.2 cm rounded soft tissue density along its posterior aspect suggestive of a possible fungus ball. Electronically Signed: Shashank Alberto MD at 9:47 EDT ,
--- NOTE | 2021-10-14 07:56 | CT_ITS ---
PROCEDURE: CT GUIDED CORE NEEDLE BIOPSY OF A right upper lobe LUNG LESION INDICATION: Male, 80 years old. LUNG NODULE (2ND BIOPSY); ABNORMAL PET PHYSICIAN: Dr. LAKSHMI Chopra CONSENT: Written informed consent was obtained having explained the risks, benefits and alternatives in detail with the patient who accepted the risks and agreed to proceed. Laboratory review and clinical assessment was performed. CONSCIOUS SEDATION PROTOCOL: The Drugs used were: 2 mg Versed, IV., and 50 mcg Fentanyl, IV. The sedation time was: 18 minutes. Conscious sedation was started at 8:58 AM and terminated at 9:16 AM. The conscious sedation protocol was independently monitored. RADIATION DOSAGE (If Supplied By Facility): CTDIvol = ( 15 ) mGy, DLP = ( 531.39 ) mGycm Individualized dose optimization techniques were used for this CT. TECHNIQUE: The patient was placed in the supine position. A noncontrast CT was performed to localize the lesion in the right upper lobe . The skin surface was prepped and draped in a sterile fashion. 1% lidocaine was used for local anesthesia. Using CT guidance, a 20-gauge coaxial biopsy device was advanced to the periphery of the lesion. A total of 5 core specimens were obtained. The specimens were placed in a formalin solution. A post procedure CT demonstrated no adverse sequelae or pneumothorax. The patient tolerated the procedure well without adverse event. A negative biopsy does not exclude malignancy. Further imaging or clinical followup based on patient condition and degree of clinical suspicion for malignancy. Suggest rebiopsy, if biopsy results do not match with clinical scenario. CT/Biopsy/Inj or Needle Placement IMPRESSION: 1. CT directed core needle biopsy of the right upper lobe nodular density using CT image guidance with image documentation as described. Pathology results are pending. 2. Conscious Sedation protocol utilized with independent monitoring. Electronically Signed: Shashank Alberto MD at 9:38 EDT ,
[2021-10-14 07:57] LABS: Absolute Lymphocyte Count 1.09 X10^3/uL (0.83-4.51); Absolute Neutrophil Count 4.7 X10^3/uL (2.0-7.7); Basophil# 0.03 X10^3/uL; Basophil% 0.5 % (0-1); Eosinophil# 0.09 X10^3/uL; Eosinophils% 1.4 % (0-5); Hematocrit 41.9 % (40-54); Lymphocyte # 1.09 X10^3/ul (0.83-4.51); Lymphocyte % 16.7 % (19-41); Mean Corp Hgb Conc 33.4 g/dL (32-36); Mean Corpuscular Volume 89.9 fL (80-94); Mean Platelet Vol. 9.4 fl (6.2-12.0); Monocyte# 0.64 X10^3/uL; Monocyte% 9.8 % (0-10); NRBC Flagged by Analyzer 0 % (0-5); Neutrophil # 4.66 X10^3/uL (2.7-7.7); Neutrophil % 71.1 % (47-70); Platelet Count 270 K/mm3 (150-450); RBC Distribution Width CV 12.8 % (11.6-14.6); RBC Distribution Width SD 42.2 fl (35.1-43.9); Red Blood Count 4.66 M/mm3 (4.6-6.2); White Blood Count 6.5 K/mm3 (4.4-11.0)
--- NOTE | 2021-10-14 08:02 | RAD_ITS ---
STUDY: X-RAY CHEST REASON FOR EXAM: Male, 80 years old. Post biopsy -- Immediately post lung biopsy TECHNIQUE: AP inspiration and expiration views. COMPARISON: Comparison is made with prior study of 09/07/2021. FINDINGS: Immediate postright lung biopsy radiographs. There is evidence of a tiny right apical pneumothorax. The patient is asymptomatic. RAD/Chest Insp/Exp 2 View IMPRESSION: Tiny right apical pneumothorax on the immediate post right lung biopsy radiographs. Electronically Signed: Shashank Alberto MD at 9:48 EDT ,
--- NOTE | 2021-10-14 08:04 | RAD_ITS ---
STUDY: X-RAY CHEST REASON FOR EXAM: Male, 80 years old. Post biopsy -- 2 hours post lung biopsy TECHNIQUE: AP inspiration and expiration views. COMPARISON: Comparison is made with prior study done earlier today. FINDINGS: There is hyperinflation of the lungs consistent with chronic obstructive lung disease (COPD). No definite pneumothorax is seen at this time. RAD/Chest Insp/Exp 2 View IMPRESSION: No definite pneumothorax is seen at this time. Electronically Signed: Shashank Alberto MD at 15:17 EDT ,
[2021-10-14 08:29] LABS: Partial Thromboplast Time 26.7 Seconds (24.1-36.2); Prothrombin Time (Protime)PT. 12.9 SECONDS (11.7-14.9)
[2021-10-14] MEDS: Midazolam 2 MG/2 ML Syringe IV (08:58)
[2021-10-14] MEDS: fentaNYL 100 MCG/2 ML Ampul IV (08:58)
[2021-10-14] MEDS: Lidocaine 2% (20 ml mdv) 20 ML Vial INFILT (09:02)
[2021-10-14 13:52] LABS: Protein, Urine (Random) 9.5 mg/dL (<11.9); Protein:Creat Ratio 163 mg/g CRE (0-200)
== END | disposition home or self-care (01) ==
PROVIDERS: Internal Medicine Nephrology; PCP Family Medicine Geriatric Medicine; Referring Provider Internal Medicine Hematology & Oncology; Visit Provider Internal Medicine Hematology & Oncology
DX: Z01.812 Encounter for preprocedural laboratory examination (principal); J44.9 Chronic obstructive pulmonary disease, unspecified; N18.32 Chronic kidney disease, stage 3b; R07.9 Chest pain, unspecified; R91.1 Solitary pulmonary nodule; Z87.891 Personal history of nicotine dependence
CPT/HCPCS: 32408; 36415; 71046; 71250; 77012; 82570; 84156; 85025; 85610; 85730; 88172; 88305; 88312; 88313; 99156; J7040; A4216; C2613

== ENCOUNTER → 2022-01-06 | Outpatient (CLI) | payer MEDICARE, OTHER, SELFPAY ==
--- NOTE | 2022-01-06 06:41 | CT_ITS ---
STUDY: CT CHEST WITHOUT CONTRAST REASON FOR EXAM: Male, 81 years old. F/U LUNG NODULE RADIATION DOSAGE (If Supplied By Facility): CTDIvol = ( 9.66 ) mGy, DLP = ( 261.08 ) mGycm TECHNIQUE: Transaxial imaging was performed without the administration of intravenous contrast material. Multiplanar coronal and sagittal images were reformatted. Individualized dose optimization techniques were used for this CT. COMPARISON: Comparison is made with prior study dated 10/14/2021. FINDINGS: CHEST Hyperinflation. Diffuse emphysematous changes with bullous formation in both lungs worse in the upper lobes. Stable scarring at the lung apices. The previously seen nodular density in the posterior lateral aspect of the right upper lobe has decreased in size. It presently measures 3.1 mm. This is seen along the posterior aspect of the bulla. There are calcifications of the coronary arteries. There are multiple small lymph nodes within the mediastinum, which are normal in size and morphology most compatible with reactive lymph hyperplasia. Calcified right hilar lymph node. Normal unenhanced pulmonary arteries. There is atherosclerotic calcification of the aortic arch with tortuosity and elongation of the aortic arch and descending thoracic aorta. There are multi-level degenerative changes of the thoracic spine. There is no demonstrated abnormality of the visualized upper abdomen. CT/Chest WITH Contrast IMPRESSION: Interval decrease in size of the nodular density in the posterolateral aspect of the right upper lobe as described. Diffuse emphysematous changes and bullous formation. Electronically Signed: Shashank Alberto MD at 8:53 EDT ,
[2022-01-06 06:50] LABS: EGFR FINGERSTICK > 60.0000 mL/min (>60)
== END | disposition home or self-care (01) ==
LOC: CT 06:38
PROVIDERS: PCP Family Medicine Geriatric Medicine; Referring Provider Internal Medicine Hematology & Oncology; Visit Provider Internal Medicine Hematology & Oncology
DX: I25.10 Atherosclerotic heart disease of native coronary artery without angina pectoris (principal); I70.0 Atherosclerosis of aorta; R91.1 Solitary pulmonary nodule
CPT/HCPCS: 71260; Q9967

== ENCOUNTER → 2022-03-09 | Outpatient (CLI) | payer MEDICARE, OTHER, SELFPAY ==
[2022-03-09 12:27] LABS: Albumin, Serum 3.5 g/dL (3.2-5.0); BUN 22 mg/dL (7-18); BUN/Creat Ratio 17.9 RATIO (10-20); Calcium,Total 9.1 mg/dL (8.5-10.1); Chloride 104 mmol/L (98-107); Creatinine, Serum 1.23 mg/dL (0.70-1.30); EST Glomerular Filtration Rate 60 mL/min (>60); Est Glom Filt Rate - Afr Amer 72 mL/min (>60); Glucose 92 mg/dL (74-106); Phosphorus 2.6 mg/dL (2.5-4.9); Potassium 4.3 mmol/L (3.5-5.1); Sodium Level 140 mmol/L (136-145)
== END | disposition home or self-care (01) ==
LOC: POLAB3 10:15
PROVIDERS: PCP Family Medicine Geriatric Medicine; Visit Provider Internal Medicine Nephrology
DX: N18.32 Chronic kidney disease, stage 3b (principal)
CPT/HCPCS: 36415; 80069

== ENCOUNTER → 2022-04-05 | Outpatient (CLI) | payer MEDICARE, OTHER, SELFPAY ==
[2022-04-05 11:32] LABS: Absolute Lymphocyte Count 1.06 X10^3/uL (0.83-4.51); Absolute Neutrophil Count 5.3 X10^3/uL (2.0-7.7); Basophil# 0.03 X10^3/uL; Basophil% 0.4 % (0-1); Eosinophil# 0.14 X10^3/uL; Hematocrit 41.6 % (40-54); Hemoglobin 14.1 g/dL (13.0-16.5); Lymphocyte # 1.06 X10^3/ul (0.83-4.51); Mean Corp Hgb Conc 33.9 g/dL (32-36); Mean Corpuscular Hgb 30.2 pg (27.0-32.0); Mean Corpuscular Volume 89.1 fL (80-94); Mean Platelet Vol. 9.8 fl (6.2-12.0); Monocyte# 0.56 X10^3/uL; Monocyte% 7.9 % (0-10); NRBC Flagged by Analyzer 0 % (0-5); Neutrophil # 5.26 X10^3/uL (2.7-7.7); Neutrophil % 74.3 % (47-70); Platelet Count 281 K/mm3 (150-450); RBC Distribution Width CV 12.2 % (11.6-14.6); RBC Distribution Width SD 39.9 fl (35.1-43.9); Red Blood Count 4.67 M/mm3 (4.6-6.2); White Blood Count 7.1 K/mm3 (4.4-11.0)
[2022-04-05 12:05] LABS: Vitamin D,25 Hydroxy 40.7 ng/mL
[2022-04-05 12:24] LABS: ALB/GLOB Ratio 1.2 RATIO (0.9-2.4); AST(SGOT) 24 U/L (15-37); Alanine Aminotransfer ALT/SGPT 26 U/L (16-61); Albumin, Serum 3.7 g/dL (3.2-5.0); Alkaline Phosphatase 80 U/L (45-117); Anion Gap 6 (5-15); BUN 18 mg/dL (7-18); BUN/Creat Ratio 13.4 RATIO (10-20); Calcium,Total 9.8 mg/dL (8.5-10.1); Chloride 105 mmol/L (98-107); Creatinine, Serum 1.34 mg/dL (0.70-1.30); EST Glomerular Filtration Rate 54 mL/min (>60); Est Glom Filt Rate - Afr Amer 65 mL/min (>60); Globulin 3.2 g/dL (2.2-4.2); Glucose 102 mg/dL (74-106); Potassium 4.5 mmol/L (3.5-5.1); Protein, Total 6.9 g/dL (6.4-8.2); Sodium Level 140 mmol/L (136-145)
== END | disposition home or self-care (01) ==
LOC: PAVLAB 08:57 → POLAB3 11:00
PROVIDERS: PCP Family Medicine Geriatric Medicine; Visit Provider Family Medicine Geriatric Medicine
DX: E55.9 Vitamin D deficiency, unspecified (principal); I10 Essential (primary) hypertension
CPT/HCPCS: 36415; 80053; 82306; 84443; 85025

== ENCOUNTER → 2022-05-11 | Outpatient (CLI) | payer MEDICARE, OTHER, SELFPAY ==
--- NOTE | 2022-05-11 12:52 | CT_ITS ---
STUDY: CT CHEST WITH CONTRAST REASON FOR EXAM: Male, 81 years old. F/U LUNG NODULE RADIATION DOSAGE (If Supplied By Facility): CTDIvol = ( 8.62 ) mGy, DLP = ( 312.34 ) mGycm TECHNIQUE: Transaxial imaging was performed following intravenous administration of IV 100mL Isovue-300. Multiplanar coronal and sagittal images were reformatted. Individualized dose optimization techniques were used for this CT. COMPARISON: Comparison is made with prior study dated 01/06/2022. FINDINGS: CHEST Hyperinflation. Diffuse emphysematous changes with bullous formation in both lungs more prominent in the upper lobes. Stable scarring at the lung apices bilaterally. Stable faint 3 mm nodule in the posterior-lateral aspect of the right upper lobe as seen on axial image #58. 3 mm pleural-based calcified granuloma in the lateral aspect of the right lower lobe as seen on axial image #109. There is no demonstrated pleural abnormality. There are calcifications of the coronary arteries. Normal mediastinum. Calcified right hilar lymph nodes. Normal unenhanced pulmonary arteries. There is atherosclerotic calcification of the aortic arch with tortuosity and elongation of the aortic arch and descending thoracic aorta. There are multi-level degenerative changes of the thoracic spine. There is no demonstrated abnormality of the visualized upper abdomen. CT/Chest WITH Contrast IMPRESSION: Stable examination. Electronically Signed: Shashank Alberto MD at 14:12 [facility] ,
[2022-05-11 13:21] LABS: CREATININE FINGERSTICK < 0.9 mg/dL (0.70-1.30); EGFR FINGERSTICK > 60.0000 mL/min (>60)
== END | disposition home or self-care (01) ==
LOC: CT 12:51
PROVIDERS: PCP Family Medicine Geriatric Medicine; Referring Provider Internal Medicine Hematology & Oncology; Visit Provider Internal Medicine Hematology & Oncology
DX: R91.1 Solitary pulmonary nodule (principal)
CPT/HCPCS: 71260

== ENCOUNTER 2022-10-11 09:24 | Outpatient (CLI) | payer MEDICARE, OTHER, SELFPAY ==
[2022-10-11 12:32] LABS: Absolute Lymphocyte Count 1.41 X10^3/uL (0.83-4.51); Absolute Neutrophil Count 5.9 X10^3/uL (2.0-7.7); Basophil# 0.04 X10^3/uL; Basophil% 0.5 % (0-1); Eosinophils% 2.4 % (0-5); Hematocrit 41.3 % (40-54); Hemoglobin 13.4 g/dL (13.0-16.5); Lymphocyte # 1.41 X10^3/ul (0.83-4.51); Lymphocyte % 17.3 % (19-41); Mean Corp Hgb Conc 32.4 g/dL (32-36); Mean Corpuscular Hgb 30.4 pg (27.0-32.0); Mean Corpuscular Volume 93.7 fL (80-94); Mean Platelet Vol. 10.8 fl (6.2-12.0); Monocyte# 0.59 X10^3/uL; Monocyte% 7.2 % (0-10); NRBC Flagged by Analyzer 0 % (0-5); Neutrophil # 5.89 X10^3/uL (2.7-7.7); Neutrophil % 72.1 % (47-70); Platelet Count 277 K/mm3 (150-450); RBC Distribution Width CV 12.7 % (11.6-14.6); RBC Distribution Width SD 43.8 fl (35.1-43.9); Red Blood Count 4.41 M/mm3 (4.6-6.2); White Blood Count 8.2 K/mm3 (4.4-11.0)
[2022-10-11 13:12] LABS: ALB/GLOB Ratio 1.4 RATIO (0.9-2.4); AST(SGOT) 20 U/L (15-37); Alanine Aminotransfer ALT/SGPT 24 U/L (16-61); Albumin, Serum 3.7 g/dL (3.2-5.0); Alkaline Phosphatase 83 U/L (45-117); Anion Gap 7 (5-15); BUN 29 mg/dL (7-18); BUN/Creat Ratio 19.2 RATIO (10-20); Calcium,Total 9.2 mg/dL (8.5-10.1); Chloride 109 mmol/L (98-107); Creatinine, Serum 1.51 mg/dL (0.70-1.30); EST Glomerular Filtration Rate 47 mL/min (>60); Est Glom Filt Rate - Afr Amer 57 mL/min (>60); Globulin 2.6 g/dL (2.2-4.2); Glucose 108 mg/dL (74-106); Potassium 4.6 mmol/L (3.5-5.1); Protein, Total 6.3 g/dL (6.4-8.2); Sodium Level 142 mmol/L (136-145)
== END 2022-10-11 23:59 | disposition home or self-care (01) ==
LOC: POLAB3 09:33
PROVIDERS: PCP Family Medicine Geriatric Medicine; Visit Provider Family Medicine Geriatric Medicine
DX: I10 Essential (primary) hypertension (principal); E55.9 Vitamin D deficiency, unspecified
CPT/HCPCS: 36415; 80053; 82306; 84443; 85025

== ENCOUNTER → 2022-10-22 | Outpatient (CLI) | payer MEDICARE, OTHER, SELFPAY ==
[2022-10-22 15:41] LABS: Probe Check PASS; Specimen Processing Control PASS
== END | disposition home or self-care (01) ==
LOC: PSN 11:45
PROVIDERS: PCP Family Medicine Geriatric Medicine; Referring Provider Family Medicine Geriatric Medicine; Visit Provider Family Medicine Geriatric Medicine
DX: R68.83 Chills (without fever) (principal)
CPT/HCPCS: 87635; 87804; 87807; C9803; U0003; U0005

== ENCOUNTER → 2022-11-08 | Outpatient (CLI) | payer MEDICARE, OTHER, SELFPAY ==
--- NOTE | 2022-11-08 12:44 | CT_ITS ---
STUDY: CT CHEST WITH CONTRAST REASON FOR EXAM: Male, 81 years old. F/U RUL NODULE RADIATION DOSAGE (If Supplied By Facility): CTDIvol = ( 9.98 ) mGy, DLP = ( 287.8 ) mGycm TECHNIQUE: Transaxial imaging was performed following intravenous administration of IV 100mL Isovue-300. Multiplanar coronal and sagittal images were reformatted. Individualized dose optimization techniques were used for this CT. COMPARISON: Comparison is made with prior study May 11, 2022. FINDINGS: CHEST Diffuse emphysematous changes with bullous formation more prominent in the upper lobes. Stable scarring at the lung apices stable 3 mm partially calcified nodule in the posterior-lateral aspect of the right upper lobe accident axial image #61. Stable calcified granuloma in the peripheral lateral aspect of the right lower lobe as seen on axial image 1. Known 9. Bilaterally. There is no demonstrated pleural abnormality. There are calcifications of the coronary arteries. Normal mediastinum. Calcified right hilar lymph nodes. Normal unenhanced pulmonary arteries. There is atherosclerotic calcification of the aortic arch with tortuosity and elongation of the aortic arch and descending thoracic aorta. There are multi-level degenerative changes of the thoracic spine. Fatty infiltration of the liver. CT/Chest WITH Contrast IMPRESSION: Stable examination. Electronically Signed: Shashank Alberto MD at 15:10 EDT ,
== END | disposition home or self-care (01) ==
LOC: CT 12:42
PROVIDERS: PCP Family Medicine Geriatric Medicine; Referring Provider Internal Medicine Hematology & Oncology; Visit Provider Internal Medicine Hematology & Oncology
DX: R91.1 Solitary pulmonary nodule (principal); K76.0 Fatty (change of) liver, not elsewhere classified; M51.34 Other intervertebral disc degeneration, thoracic region
CPT/HCPCS: 71260; Q9967

== ENCOUNTER → 2022-12-02 | Outpatient (CLI) | payer MEDICARE, OTHER, SELFPAY ==
[2022-12-03 16:36] LABS: Probe Check PASS; Specimen Processing Control PASS
== END | disposition home or self-care (01) ==
LOC: PSN 12:55
PROVIDERS: PCP Family Medicine Geriatric Medicine; Referring Provider Family Medicine Geriatric Medicine; Visit Provider Family Medicine Geriatric Medicine
DX: R68.83 Chills (without fever) (principal)
CPT/HCPCS: 87635; 87804; 87807; C9803; U0005

== ENCOUNTER → 2023-02-28 | Outpatient (CLI) | payer MEDICARE, OTHER, SELFPAY ==
[2023-02-28 11:19] LABS: Albumin, Serum 3.7 g/dL (3.2-5.0); BUN 23 mg/dL (7-18); BUN/Creat Ratio 17.2 RATIO (10-20); Calcium,Total 9.2 mg/dL (8.5-10.1); Chloride 109 mmol/L (98-107); Creatinine, Serum 1.34 mg/dL (0.70-1.30); EST Glomerular Filtration Rate 54 mL/min (>60); Est Glom Filt Rate - Afr Amer 65 mL/min (>60); Glucose 107 mg/dL (74-106); Phosphorus 2.6 mg/dL (2.5-4.9); Potassium 4.3 mmol/L (3.5-5.1); Sodium Level 140 mmol/L (136-145)
== END | disposition home or self-care (01) ==
PROVIDERS: PCP Family Medicine Geriatric Medicine; Visit Provider Internal Medicine Nephrology
DX: N18.32 Chronic kidney disease, stage 3b (principal)
CPT/HCPCS: 36415; 80069

== ENCOUNTER → 2023-04-18 | Outpatient (CLI) | payer MEDICARE, OTHER, SELFPAY ==
[2023-04-18 10:03] LABS: Absolute Neutrophil Count 7.2 X10^3/uL (2.0-7.7); Basophil# 0.03 X10^3/uL; Basophil% 0.3 % (0-1); Eosinophil# 0.15 X10^3/uL; Eosinophils% 1.6 % (0-5); Hematocrit 42.5 % (40-54); Hemoglobin 13.7 g/dL (13.0-16.5); Lymphocyte % 13.8 % (19-41); Mean Corp Hgb Conc 32.2 g/dL (32-36); Mean Corpuscular Volume 89.9 fL (80-94); Mean Platelet Vol. 10.1 fl (6.2-12.0); Monocyte# 0.72 X10^3/uL; Monocyte% 7.7 % (0-10); NRBC Flagged by Analyzer 0 % (0-5); Neutrophil # 7.18 X10^3/uL (2.7-7.7); Neutrophil % 76.4 % (47-70); Platelet Count 304 K/mm3 (150-450); RBC Distribution Width SD 42.8 fl (35.1-43.9); Red Blood Count 4.73 M/mm3 (4.6-6.2); White Blood Count 9.4 K/mm3 (4.4-11.0)
[2023-04-18 10:16] LABS: Vitamin D,25 Hydroxy 38.5 ng/mL
[2023-04-18 10:24] LABS: ALB/GLOB Ratio 1.2 RATIO (0.9-2.4); AST(SGOT) 14 U/L (15-37); Alanine Aminotransfer ALT/SGPT 20 U/L (16-61); Albumin, Serum 3.6 g/dL (3.2-5.0); Alkaline Phosphatase 81 U/L (45-117); Anion Gap 6 (5-15); BUN 20 mg/dL (7-18); Calcium,Total 9.2 mg/dL (8.5-10.1); Chloride 107 mmol/L (98-107); Creatinine, Serum 1.54 mg/dL (0.70-1.30); EST Glomerular Filtration Rate 46 mL/min (>60); Est Glom Filt Rate - Afr Amer 56 mL/min (>60); Globulin 3.1 g/dL (2.2-4.2); Glucose 102 mg/dL (74-106); Potassium 4.2 mmol/L (3.5-5.1); Protein, Total 6.7 g/dL (6.4-8.2); Sodium Level 139 mmol/L (136-145); Thyroid Stim Hormone (TSH) 2.91 uIU/mL (0.358-3.74)
== END | disposition home or self-care (01) ==
LOC: POLAB3 09:19
PROVIDERS: PCP Family Medicine Geriatric Medicine; Visit Provider Family Medicine Geriatric Medicine
DX: I10 Essential (primary) hypertension (principal); E55.9 Vitamin D deficiency, unspecified
CPT/HCPCS: 36415; 80053; 82306; 84443; 85025

== ENCOUNTER → 2023-10-17 | Outpatient (CLI) | payer MEDICARE, OTHER, SELFPAY ==
[2023-10-17 11:20] LABS: Absolute Lymphocyte Count 1.36 X10^3/uL (0.83-4.51); Basophil# 0.05 X10^3/uL; Basophil% 0.6 % (0-1); Eosinophil# 0.29 X10^3/uL; Eosinophils% 3.5 % (0-5); Hematocrit 41.1 % (40-54); Hemoglobin 13.4 g/dL (13.0-16.5); Lymphocyte # 1.36 X10^3/ul (0.83-4.51); Lymphocyte % 16.4 % (19-41); Mean Corp Hgb Conc 32.6 g/dL (32-36); Mean Corpuscular Hgb 29.8 pg (27.0-32.0); Mean Corpuscular Volume 91.5 fL (80-94); Mean Platelet Vol. 10.1 fl (6.2-12.0); Monocyte# 0.55 X10^3/uL; Monocyte% 6.6 % (0-10); NRBC Flagged by Analyzer 0 % (0-5); Neutrophil # 6.04 X10^3/uL (2.7-7.7); Neutrophil % 72.7 % (47-70); Platelet Count 310 K/mm3 (150-450); RBC Distribution Width CV 12.6 % (11.6-14.6); RBC Distribution Width SD 42.6 fl (35.1-43.9); Red Blood Count 4.49 M/mm3 (4.6-6.2); White Blood Count 8.3 K/mm3 (4.4-11.0)
[2023-10-17 11:43] LABS: ALB/GLOB Ratio 1.2 RATIO (0.9-2.4); AST(SGOT) 22 U/L (15-37); Alanine Aminotransfer ALT/SGPT 24 U/L (16-61); Albumin, Serum 3.5 g/dL (3.2-5.0); Alkaline Phosphatase 85 U/L (45-117); Anion Gap 7 (5-15); BUN 20 mg/dL (7-18); Calcium,Total 8.9 mg/dL (8.5-10.1); Chloride 107 mmol/L (98-107); Creatinine, Serum 1.54 mg/dL (0.70-1.30); EST Glomerular Filtration Rate 46 mL/min (>60); Est Glom Filt Rate - Afr Amer 56 mL/min (>60); Globulin 2.9 g/dL (2.2-4.2); Glucose 114 mg/dL (74-106); Potassium 4.7 mmol/L (3.5-5.1); Protein, Total 6.4 g/dL (6.4-8.2); Sodium Level 139 mmol/L (136-145); Thyroid Stim Hormone (TSH) 3.14 uIU/mL (0.358-3.74)
== END | disposition home or self-care (01) ==
LOC: POLAB3 09:48
PROVIDERS: PCP Family Medicine Geriatric Medicine; Visit Provider Family Medicine Geriatric Medicine
DX: I10 Essential (primary) hypertension (principal); E55.9 Vitamin D deficiency, unspecified
CPT/HCPCS: 36415; 80053; 82306; 84443; 85025

== ENCOUNTER → 2023-11-07 | Outpatient (CLI) | payer MEDICARE, OTHER, SELFPAY ==
--- NOTE | 2023-11-07 12:38 | CT_ITS ---
STUDY: CT CHEST WITH CONTRAST REASON FOR EXAM: Male, 82 years old. Monitoring lung nodule RADIATION DOSAGE (If Supplied By Facility): CTDIvol = ( 9.82 ) mGy, DLP = ( 286.15 ) mGycm TECHNIQUE: Transaxial imaging was performed following intravenous administration of IV 100mL Isovue-300. Multiplanar coronal and sagittal images were reformatted. Individualized dose optimization techniques were used for this CT. COMPARISON: Comparison is made with prior examination dated November 08, 2022. FINDINGS: CHEST The left lobe of the thyroid gland is not seen. Hyperinflation. Diffuse emphysematous changes with bullous formation worse in the right upper lobe. Mild linear scarring at the lung bases. Stable 3 mm partially calcified nodule in the posterolateral aspect of the right upper lobe as seen on axial image #59. New focal irregular infiltrates with bronchograms representing either infiltrate and/or scarring in the posterior lateral aspect of the right upper lobe as seen on axial image #33 through axial #48. There are calcifications of the coronary arteries. Normal mediastinum. Calcified right hilar lymph node. Normal unenhanced pulmonary arteries. There is atherosclerotic calcification of the aortic arch with tortuosity and elongation of the aortic arch and descending thoracic aorta. There is demineralization of the thoracic spine. Fatty infiltration of the liver. CT/Chest WITH Contrast IMPRESSION: Stable 3 mm partially calcified nodule in the posterolateral aspect of the right upper lobe as described. New focal area of the groundglass appearance with bronchiectasis in the posterior lateral aspect of the right upper lobe. This most likely represents a focus of scarring. Electronically Signed: Shashank Alberto MD at 13:45 EDT ,
== END | disposition home or self-care (01) ==
LOC: CT 12:37
PROVIDERS: PCP Family Medicine Geriatric Medicine; Referring Provider Internal Medicine Hematology & Oncology; Visit Provider Internal Medicine Hematology & Oncology
DX: R91.8 Other nonspecific abnormal finding of lung field (principal)
CPT/HCPCS: 71260; Q9967

== ENCOUNTER → 2024-02-28 | Outpatient (CLI) | payer MEDICARE, OTHER, SELFPAY ==
[2024-02-28 15:07] LABS: Albumin, Serum 3.6 g/dL (3.2-5.0); BUN 24 mg/dL (7-18); BUN/Creat Ratio 13.9 RATIO (10-20); Calcium,Total 9.6 mg/dL (8.5-10.1); Chloride 100 mmol/L (98-107); Creatinine, Serum 1.73 mg/dL (0.70-1.30); EST Glomerular Filtration Rate 40 mL/min (>60); Est Glom Filt Rate - Afr Amer 49 mL/min (>60); Glucose 102 mg/dL (74-106); Phosphorus 3.9 mg/dL (2.5-4.9); Potassium 5.7 mmol/L (3.5-5.1); Sodium Level 134 mmol/L (136-145)
== END | disposition home or self-care (01) ==
LOC: LAB.FUTURE 14:04
PROVIDERS: PCP Family Medicine Geriatric Medicine; Visit Provider Internal Medicine Nephrology
DX: N18.32 Chronic kidney disease, stage 3b (principal)
CPT/HCPCS: 36415; 80069; 83970

== ENCOUNTER → 2024-04-20 | Outpatient (CLI) | payer MEDICARE, OTHER, SELFPAY ==
--- OUTSIDE RECORDS SUMMARY | 2024-04-20 10:25 | XMS RPT_ITS | CCD ---
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 [place] Primary Care Unavailjanessa MOSES MD., DR. MEJIA Attending Unavaila ble Medications Current Medications Medication Drug Class(es) Dates Sig (Normalized) Sig (Original) albuterol MDI (90 mcg/inh) CFC free inhalation aerosol (1 source) Start: 06-21-2022 take 1 puff(s) by inhalation every four hours as needed for wheezing albuterol MDI (90 mcg/inh) CFC free inhalation aerosol 1 puff(s), Inhalation, q4h, PRN as needed for wheezing, # 18 gram(s), 0 Refill(s) Start Date: 06/21/22 Status: Ordered amLODIPine 5 mg oral tablet (1 source) Dihydropyridine Calcium Channel Kelsea Start: 06-21-2022 amLODIPine 5 mg oral tablet Dose : 5 mg = 1 tab(s), Oral, qDay, # 30 tab(s), 0 Refill(s) Start Date: 06/21/22 Status: Ordered pravastatin sodium 40 mg oral tablet (1 source) HMG-CoA Reductase Inhibitor Start: 06-21-2022 pravastatin 40 mg oral tablet Dose : 40 mg = 1 tab(s), Oral, qDay, # 30 tab(s), 0 Refill(s) Start Date: 06/21/22 Status: Ordered Trelegy Ellipta 100 mcg-62.5 mcg-25 mcg/inh inhalation powder (1 source) Start: 06-21-2022 take 1 dose by mouth once daily Trelegy Ellipta 100 mcg-62.5 mcg-25 mcg/inh inhalation powder Dose = 1 puff(s), Inhalation, qDay, at the same time every day. Following administration, rinse mouth with water after use (do not swallow)., # 60 EA, 0 Refill(s) Start Date: 06/21/22 Status: Ordered Results Test Name Value Interpretation Reference Range Facil barrett Final Surgical Pathology Rep na 06-23-2022 Final Surgical Pathology Report . Pathology Reports Accession: Collected Date/Time: Received Date/Time: Pathologist: [id number] 06/21/2022 10:00 EST 06/22/2022 10:55 EST SWAPNIL ESPINOSA MD Final Surgical Pathology Report DIAGNOSIS: A. 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 Received in formalin, labeled with the patients name, Case #[id number], and cecal biopsies multiple martinez tissue fragments ranging from 0.1 to 0.2 cm. TS -1 Dictated by MEAGAN MARROQUIN MICROSCOPIC DESCRIPTION: The microscopic examination is performed, except in the case of Gross Only. Electronically Signed by Pathology Report verified by [facility] SWAPNIL ESPINOSA Sign out Date: 06/23/2022 08:59 Performing Lab: [facility], [address] [place] [address] Pathology Dept Formerly [facility] ([place]) Vital Signs Date Time Vital Sign Value Performing Clinician Aminata newton 06-21-2022 10:20-0500 Diastolic Blood Pressure Non-Invasive [address] ROBERTO MOSES MD [facility] 06-21-2022 10:20-0500 Heart rate 68 /min DR ROBERTO MOSES MD [facility] 06-21-2022 10:20-0500 Respiratory rate 14 /min DR ROBERTO MOSES MD [facility] 06-21-2022 10:20-0500 Systolic Blood Pressure Non-Invasive [address] ROBERTO MOSES MD [facility] 06-21-2022 10:15-0500 Diastolic Blood Pressure Non-Invasive [address] ROBERTO MOSES MD [facility] 06-21-2022 10:15-0500 Heart rate 58 /min DR ROBERTO MOSES MD [facility] 06-21-2022 10:15-0500 Respiratory rate 14 /min DR ROBERTO MOSES MD [facility] 06-21-2022 10:15-0500 Systolic Blood Pressure Non-Invasive [address] ROBERTO MOSES MD [facility] 06-21-2022 10:10-0500 Diastolic Blood Pressure Non-Invasive [address] ROBERTO MOSES MD [facility] 06-21-2022 10:10-0500 Heart rate 64 /min DR ROBERTO MOSES MD [facility] 06-21-2022 10:10-0500 Respiratory rate 16 /min DR ROBERTO MOSES MD [facility] 06-21-2022 10:10-0500 Systolic Blood Pressure Non-Invasive [address] ROBERTO MOSES MD [facility] 06-21-2022 09:55-0500 Respiratory Rate - Anes 0 br/min DR ROBERTO MOSES MD [facility] 06-21-2022 09:50-0500 Respiratory Rate - Anes 0 br/min DR ROBERTO MOSES MD [facility] 06-21-2022 09:45-0500 Respiratory Rate - Anes 0 br/min DR ROBERTO MOSES MD [facility] 06-21-2022 07:38-05[address] Blood Pressure Cuff Size DR ROBERTO MOSES MD [facility] 06-21-2022 07:38-[address] ROBERTO MOSES MD [facility] 06-21-2022 07:38-[address] ROBERTO MOSES MD [facility] 06-21-2022 07:38-0500 Body height 172.[address] ROBERTO MOSES MD [facility] 06-21-2022 07:38-0500 Body temperature 97.34 [degF] DR ROBERTO MOSES MD [facility] 06-21-2022 07:38-0500 Body weight 59.[address] ROBERTO MOSES MD [facility] 06-21-2022 07:38-0500 Body weight 19.82 kg/m2 DR ROBERTO MOSES MD [facility] 06-21-2022 07:38-0500 Heart rate 93 /min DR ROBERTO MOSES MD [facility] Encounters Encounter Date Encounter Type Care Provider Facility Start: 06-21-2022 End: 06-21-[address] NORMAN CASTAÑEDA MD. Facility:B Start: 06-21-2022 End: 06-21-[address] ROBERTO MOSES MD [facility] Procedures Date Procedure Procedure Detail Performing Clinician Start: 06-21-[address] ROBERTO MOSES MD Start: 12-16-[address] ROBERTO MOSES MD Appendectomy DR ROBERTO MOSQUEDA MD Comment on above: about 30 years ago Immunizations Immunization Date Immunization Notes Care Provider [facility] 08-18-2020 COVID-19, mRNA, LNP- S, PF, 100 mcg or 50 mcg dose; Translations: [Moderna COVID-19 Vaccine] DR ROBERTO MOSES MD [facility] Payers Date Payer Category Payer Medicare [id number] 2022 Private Health Insurance [id number] 1940 Unknown [id number] Social History Date Type Detail Facility Tobacco smoking status No Smoking Status Entered [facility] Sex Assigned At Male [facility] Functional Status Date Assessment Result Facility 06-21-2022 Functional Status Awake [facility] 06-21-2022 Functional Status Maintained [facility] Mental Status Date Assessment Result Facility 06-21-2022 Mental Status Orientation Oriented x 4 [facility] 06-21-2022 Mental Status [facility] Evaluation + Plan note 06-21-2022 Note Date & Type Note Facility 06-21-2022 Evaluation + Plan note Extrac vero from: Title:Clinical Document Author:ROBERTO MOSES Date:06/21/22 [place] ADMISSION HISTORY AN D PHYSICIAL CHIEF COMPLAINT: HISTORY OF PRESENT ILLNESS: REVIEW OF SYSTEMS: ACTIVE PROBLEMS: (2) COPD (chronic obstructive pulmonary disease) (33675050) Hypertension ([id number]) MEDICATIONS: Active Inpt Meds: None Active PRN Meds: None One Time Meds: None Active IV Meds: Lactated Ringers Infusion 1,000 mL (LR 1,000 mL) Start: 06/21/22 7:52:00 EST, Rate: 50 mL/hr, 06/21/22 7:52:00 EST ALLERGIES: (1) NKA FAMILY HISTORY: SOCIAL HISTORY: PHYSICAL EXAM: VITALS: McyugpUsezOVCzxjjUCFkX2XZF8GsqeCk(kg) 06/21 07:3836.3--[id number] 59.1 24 Hr Tmax: 36.3 at 06/21 07:38 36 Hr Tmax: 36.3 at 06/21 07:38 Vital Signs are the last 5 in the past 48 hours. Weights display the last 5 within 7 days. Initial Wt: 06/21 59.1 kg 130 lb Current Wt: 06/21 59.1 kg 130 lb GENERAL: HEENT: CARDIOVASCULAR: RESPIRATORY: ABDOMEN: EXREMETIES: NEUROLOGICAL: PSYCHIATRIC: LABS: No 36hr Lab Data DIAGNOSTICS: IMPRESSION: PLAN: History and Physical Update I have examined the patient; reviewed the H&P and there are no changes to the H&P unless noted below. [facility] Hospital Discharge instructions 06-21-2022 Note Date & Type Note Facility 06-21-2022 Hospital Discharg e instructions Patient Education 06/21/2022 10:06:33 Monitored Anesthesia Care, Care After Monitored Anesthesia Care, Care After These instructions provide you with information about caring for yourself after your procedure. Your health care provider may also give you more specific instructions. Your treatment has been planned according to current medical practices, but problems sometimes occur. Call your health care provider if you have any problems or questions after your procedure. What can I expect after the procedure? After your procedure, you may: Feel sleepy for several hours. Feel clumsy and have poor balance for several hours. Feel forgetful about what happened after the procedure. Have poor judgment for several hours. Feel nauseous or vomit. Have a sore throat if you had a breathing tube during the procedure. Follow these instructions at home: For at least 24 hours after the procedure: Have a responsible adult stay with you. It is important to have someone help care for you until you are awake and alert. Rest as needed. Do not: ?Participate in activities in which you could fall or become injured. ?Drive. ?Use heavy machinery. ?Drink alcohol. ?Take sleeping pills or medicines that cause drowsiness. ?Make important decisions or sign legal documents. ?Take care of children on your own. Eating and drinking Follow the diet that is recommended by your health care provider. If you vomit, drink water, juice, or soup when you can drink without vomiting. Make sure you have little or no nausea before eating solid foods. General instructions Take mlsm-fuv-obghjjw and prescription medicines only as told by your health care provider. If you have sleep apnea, surgery and certain medicines can increase your risk for breathing problems. Follow instructions from your health care provider about wearing your sleep device: ?Anytime you are sleeping, including during daytime naps. ?While taking prescription pain medicines, sleeping medicines, or medicines that make you drowsy. If you smoke, do not smoke without supervision. Keep all follow-up visits as told by your health care provider. This is important. Contact a health care provider if: You keep feeling nauseous or you keep vomiting. You feel light-headed. You develop a rash. You have a fever. Get help right away if: You have trouble breathing. Summary For several hours after your procedure, you may feel sleepy and have poor judgment. Have a responsible adult stay with you for at least 24 hours or until you are awake and alert. This information is not intended to replace advice given to you by your health care provider. Make sure you discuss any questions you have with your health care provider. Document Released: 10/10/2016 Document Revised: 09/18/2018 Document Reviewed: 10/10/2016 [employer] Patient Education 2020 [employer]. 06/21/2022 10:06:21 Colonoscopy, Adult, Care After Colonoscopy, Adult, Care After This sheet gives you information about how to care for yourself after your procedure. Your health care provider may also give you more specific instructions. If you have problems or questions, contact your health care provider. What can I expect after the procedure? After the procedure, it is common to have: A small amount of blood in your stool for 24 hours after the procedure. Some gas. Mild abdominal cramping or bloating. Follow these instructions at home: General instructions For the first 24 hours after the procedure: ?Do not drive or use machinery. ?Do not sign important documents. ?Do not drink alcohol. ?Do your regular daily activities at a slower pace than normal. ?Eat soft, kxbc-jw-bgosld foods. Take vtki-qjp-ahtqxph or prescription medicines only as told by your health care provider. Relieving cramping and bloating Try walking around when you have cramps or feel bloated. Apply heat to your abdomen as told by your health care provider. Use a heat source that your health care provider recommends, such as a moist heat pack or a heating pad. ?Place a towel between your skin and the heat source. ?Leave the heat on for 20 30 minutes. ?Remove the heat if your skin turns bright red. This is especially important if you are unable to feel pain, heat, or cold. You may have a greater risk of getting burned. Eating and drinking Drink enough fluid to keep your urine pale yellow. Resume your normal diet as instructed by your health care provider. Avoid heavy or fried foods that are hard to digest. Avoid drinking alcohol for as long as instructed by your health care provider. Contact a health care provider if: You have blood in your stool 2 3 days after the procedure. Get help right away if: You have more than a small spotting of blood in your stool. You pass large blood clots in your stool. Your abdomen is swollen. You have nausea or vomiting. You have a fever. You have increasing abdominal pain that is not relieved with medicine. Summary After the procedure, it is common to have a small amount of blood in your stool. You may also have mild abdominal cramping and bloating. For the first 24 hours after the procedure, do not drive or use machinery, sign important documents, or drink alcohol. Contact your health care provider if you have a lot of blood in your stool, nausea or vomiting, a fever, or increased abdominal pain. This information is not intended to replace advice given to you by your health care provider. Make sure you discuss any questions you have with your health care provider. Document Released: 02/01/2005 Document Revised: 04/12/2018 Document Reviewed: 08/31/2016 [employer] Patient Education 2020 [employer]. Follow Up Care 05/24/2022 12:11:13 With:ROBERTO MOSES MD Address: [address] [place] [phone] When: Unknown Comments:Follow-up as needed [facility] Anesthesiology Consult note 06-21-2022 Note Date & Type Note Facility 06-21-2022 Anesthesiology Consult note Patient: BERNABE NGUYEN Age: 81 years Sex: Male : 1940 Associated Diagnoses: None Author: RAMILA BARNES APRN-HEAT AND FROST INSULATOR HELPER Assessment Postanesthesia assessment Vitals: Reviewed Results: Vital signs from flowsheet : Vital Signs(Date Range: 06/20/2022 0:00 EST - 06/21/2022 10:08 EST) . Mental status: at preoperative baseline, alert & oriented x 4. Respiratory function: lungs are clear to auscultation. Respiratory support: none. CV function: Normal rate. Cardiovascular support: none. Pain. Nausea status: denies nausea. Postoperative hydration status: within normal limits. Digitally Signed by RAMILA BARNES on 06/21/2022 10:08 AM [facility] Summary of episode note 06-21-2022 Note Date & Type Note Facility 06-21-2022 Summary of episode note Discharge Instructions Thank you for allowing [facility] to assist you with your healthcare needs. The following is important discharge information regarding your hospital visit. Your Care Team NORMAN CASTAÑEDA MD Your Diagnosis COLONOSCOPY What to do next Follow Up Appointments Follow Up with ROBERTO MOSES MD When Why: Follow-up as needed Where: [address] [place] [address] [phone] Allergies NKA Medications Please ask your primary doctor or pharmacist before taking any other medication not listed, including over the counter drugs, herbal medications, vitamins and or supplements as they may interact with your home medications. What How Much When Instructions Last Dose Unchanged albuterol (albuterol MDI (90 mcg/ inh) CFC free inhalation aerosol) 1 puff(s) by inhalation Every 4 hours as needed for as needed for wheezing Unchanged amLODIPine (amLODIPine 5 mg oral tablet) 1 tab(s) by mouth Once a day Unchanged fluticasone/ umeclidinium/ vilanterol (Trelegy Ellipta 100 mcg-62.5 mcg-25 mcg/ inh inhalation powder) 1 puff(s) by inhalation Once a day at the same time every day. Following administration, rinse mouth with water after use (do not swallow). Unchanged pravastatin (pravastatin 40 mg oral tablet) 1 tab(s) by mouth Once a day Please take this list to your next doctor s visit. Bring all medications you take, including over the counter medications, herbals and other supplements with you to your doctor s visit. Patients and families are reminded to discard old lists and to update any records with all medication providers or retail pharmacies. Education Materials Monitored Anesthesia Care, Care After These instructions provide you with information about caring for yourself after your procedure. Your health care provider may also give you more specific instructions. Your treatment has been planned according to current medical practices, but problems sometimes occur. Call your health care provider if you have any problems or questions after your procedure. What can I expect after the procedure? After your procedure, you may: Feel sleepy for several hours. Feel clumsy and have poor balance for several hours. Feel forgetful about what happened after the procedure. Have poor judgment for several hours. Feel nauseous or vomit. Have a sore throat if you had a breathing tube during the procedure. Follow these instructions at home: For at least 24 hours after the procedure: Have a responsible adult stay with you. It is important to have someone help care for you until you are awake and alert. Rest as needed. Do not: ? Participate in activities in which you could fall or become injured. ? Drive. ? Use heavy machinery. ? Drink alcohol. ? Take sleeping pills or medicines that cause drowsiness. ? Make important decisions or sign legal documents. ? Take care of children on your own. Eating and drinking Follow the diet that is recommended by your health care provider. If you vomit, drink water, juice, or soup when you can drink without vomiting. Make sure you have little or no nausea before eating solid foods. General instructions Take dqif-taj-uryrrsz and prescription medicines only as told by your health care provider. If you have sleep apnea, surgery and certain medicines can increase your risk for breathing problems. Follow instructions from your health care provider about wearing your sleep device: ? Anytime you are sleeping, including during daytime naps. ? While taking prescription pain medicines, sleeping medicines, or medicines that make you drowsy. If you smoke, do not smoke without supervision. Keep all follow-up visits as told by your health care provider. This is important. Contact a health care provider if: You keep feeling nauseous or you keep vomiting. You feel light-headed. You develop a rash. You have a fever. Get help right away if: You have trouble breathing. Summary For several hours after your procedure, you may feel sleepy and have poor judgment. Have a responsible adult stay with you for at least 24 hours or until you are awake and alert. This information is not intended to replace advice given to you by your health care provider. Make sure you discuss any questions you have with your health care provider. Document Released: 10/10/2016 Document Revised: 09/18/2018 Document Reviewed: 10/10/2016 [employer] Patient Education 2020 [employer] Colonoscopy, Adult, Care After This sheet gives you information about how to care for yourself after your procedure. Your health care provider may also give you more specific instructions. If you have problems or questions, contact your health care provider. What can I expect after the procedure? After the procedure, it is common to have: A small amount of blood in your stool for 24 hours after the procedure. Some gas. Mild abdominal cramping or bloating. Follow these instructions at home: General instructions For the first 24 hours after the procedure: ? Do not drive or use machinery. ? Do not sign important documents. ? Do not drink alcohol. ? Do your regular daily activities at a slower pace than normal. ? Eat soft, haad-zf-tkbdov foods. Take bzjw-zyz-zpmaacu or prescription medicines only as told by your health care provider. Relieving cramping and bloating Try walking around when you have cramps or feel bloated. Apply heat to your abdomen as told by your health care provider. Use a heat source that your health care provider recommends, such as a moist heat pack or a heating pad. ? Place a towel between your skin and the heat source. ? Leave the heat on for 20 30 minutes. ? Remove the heat if your skin turns bright red. This is especially important if you are unable to feel pain, heat, or cold. You may have a greater risk of getting burned. Eating and drinking Drink enough fluid to keep your urine pale yellow. Resume your normal diet as instructed by your health care provider. Avoid heavy or fried foods that are hard to digest. Avoid drinking alcohol for as long as instructed by your health care provider. Contact a health care provider if: You have blood in your stool 2 3 days after the procedure. Get help right away if: You have more than a small spotting of blood in your stool. You pass large blood clots in your stool. Your abdomen is swollen. You have nausea or vomiting. You have a fever. You have increasing abdominal pain that is not relieved with medicine. Summary After the procedure, it is common to have a small amount of blood in your stool. You may also have mild abdominal cramping and bloating. For the first 24 hours after the procedure, do not drive or use machinery, sign important documents, or drink alcohol. Contact your health care provider if you have a lot of blood in your stool, nausea or vomiting, a fever, or increased abdominal pain. This information is not intended to replace advice given to you by your health care provider. Make sure you discuss any questions you have with your health care provider. Document Released: 02/01/2005 Document Revised: 04/12/2018 Document Reviewed: 08/31/2016 [email or web address] Patient Education 2020 [employer]. Additional Information VACCINATE! IT SAVES LIVES! Members of the community who have not yet received the COVID-19 vaccine and would like to receive it can visit one of [facility] vaccine clinics. There are many vaccine clinic locations within the [facility]. For locations and available times, please visit [email or web address].[place].gov/. It is important to note that some COVID mobile vaccine clinics are held outdoors and may be canceled in rainy or stormy conditions. To learn more about pediatric vaccinations (ages 5-11), we invite you to visit the [facility] webpage. https://www.[facility].org/pag es/4528-Ibjds-Zyeqhzbuilf-Frequent zo-Dyehl-Vjrmkatys.html To learn more about the COVID-19 vaccine, we invite you to visit the [employer] website for a list of frequently asked questions. https://[employer]/assets/Patient q-gln-Plktatls/smlxd-Rwuhnja-Qpfyb ently_Asked-Questions.pdf [facility] Patient Portal Access Instructions: Stay connected with your healthcare team and access your personal medical information anytime with the [facility] Patient Portal.If you would like a full copy of your medical records, please contact the [facility] Medical Records Department, Tuesday through Tuesday between 8a.m. and 4:30p.m. Please follow the directions below to access the portal: 1.Access the email account you provided upon registration to the [facility].2.Look for an invitation email from [facility].3.Open the email and access the invitation link: Accept Invitation to [facility].Fill in the required staton to create your account. Sign into [email or web address] with your username and password that you created in the above steps to stay up to date. You can then view a summary of results, a summary of your visits, and the ability to download your summaries to your computer or send the information securely to a physician. Remember that your healthcare information is confidential, so carefully consider who you will allow to register on the [employer] Patient Portal for access to your information. You can also access the [facility] Patient Portal on the [employer] khris. Simply click on Health Records under Health Data and then click on the [employer] logo. HOW TO SAFELY DISPOSE OF PRESCRIPTION MEDICATIONS Please use one of the following methods to safely dispose of your unused medications. 1.Use a drug disposal kit: the drug disposal pouch allows you to safely discard your old and unused drugs. Ask your nurse to give you one when you are discharged.2.Visit a local take-back location: Many local pharmacies and police departments have programs that collect old and unwanted prescription drugs. Call your local pharmacy or go to http://[employer] Lab/3B3Jl4l to find one close to you.3.Make use of household items: Use cat litter or old coffee grounds to dispose medications if other options are not available. Mix your drugs with these household products, seal them in an airtight container and throw it into the garbage. Call [facility]: [phone] to be sure your drugs can be disposed of in this way. Some medicines may require a different approach.4.Never flush your medications down the toilet. IF YOU HAVE BEEN PRESCRIBED AN OPIOID FOR PAIN If you have been prescribed an opioid (such as hydrocodone, oxycodone or morphine), it is critical to understand the possible side effects and risks of opioid pain medications. Even when taken as directed, opioids can have several side effects including: Tolerance, meaning you might need to take more of a medication for the same pain relief. Nausea, vomiting and/or constipation. Sleepiness, dizziness, dry mouth, confusion, depression or itching. Physical dependence, meaning you have withdrawal symptoms when a medication is stopped, can develop within a few days. KNOW YOUR RESPONSIBILITIES It is important to know exactly how much and how often to take the opioid pain medications you are prescribed. Never take opioids in higher amounts or more often than prescribed. Do not combine opioids with alcohol or other drugs that cause drowsiness, such as benzodiazepines, also known as benzos, including diazepam and alprazolam, muscle relaxants or sleep aids. Never sell or share prescription opioids. This is illegal. Store opioids in a secure place and out of reach of others (including children, family, friends and visitors). The last page of this document has been signed and retained as a CHART COPY. Signatures Patient Education Materials Monitored Anesthesia Care, Care After Colonoscopy, Adult, Care After Medication Leaflets My discharge plan and instructions have been reviewed and explained to me and I,BERNABE NGYUEN understand my current condition and have read and understand these discharge instructions. I have received a written copy of the plan/instructions. If I have questions, I am aware that I should contact my doctor. Patient/Bibliographic Services Specialist Signature: Date/Time: Relationship to Patient: ___ Witness Name/Signature: Date/Time: [facility] Clinical Note 06-21-2022 Note Date & Type Note Facility 06-21-2022 Note [facility] ADMISSION HISTORY AND PHYSICIAL CHIEF COMPLAINT: HISTORY OF PRESENT ILLNESS: REVIEW OF SYSTEMS: ACTIVE PROBLEMS: (2) COPD (chronic obstructive pulmonary disease) ([id number]) Hypertension ([id number]) MEDICATIONS: Active Inpt Meds: None Active PRN Meds: None One Time Meds: None Active IV Meds: Lactated Ringers Infusion 1,000 mL (LR 1,000 mL) Start: 06/21/22 7:52:00 EST, Rate: 50 mL/hr, 06/21/22 7:52:00 EST ALLERGIES: (1) NKA FAMILY HISTORY: SOCIAL HISTORY: PHYSICAL EXAM: VITALS: [id number](kg ) 06/21 07:3836.3--[id number]/19 59.1 24 Hr Tmax: 36.3 at 06/21 07:38 36 Hr Tmax: 36.3 at 06/21 07:38 Vital Signs are the last 5 in the past 48 hours. Weights display the last 5 within 7 days. Initial Wt: 06/21 59.1 kg 130 lb Current Wt: 06/21 59.1 kg 130 lb GENERAL: HEENT: CARDIOVASCULAR: RESPIRATORY: ABDOMEN: EXREMETIES: NEUROLOGICAL: PSYCHIATRIC: LABS: No 36hr Lab Data DIAGNOSTICS: IMPRESSION: PLAN: History and Physical Update I have examined the patient; reviewed the H&P and there are no changes to the H&P unless noted below. Digitally Signed by ROBERTO MOSES MD on 06/21/2022 09:33 AM [facility] Anesthesiology Consult note 06-21-2022 Note Date & Type Note Facility 06-21-2022 Anesthesiology Consult note Patient: BERNABE NGUYEN Age: 81 years Sex: Male : 1940 Associated Diagnoses: None Author: RAMILA BARNES Preoperative Information Time of last food or liquid consumption: 06/21/2022 02:00:00 Anesthesia history Patient's history: negative. Family's history: negative. Health Status Allergies: Allergic Reactions (Selected) NKA, Allergies (1) ActiveReaction NKANone Documented Current medications: (Selected) Documented Medications Documented Trelegy Ellipta 100 mcg-62.5 mcg-25 mcg/inh inhalation powder: 1 puff(s), Inhalation, qDay, at the same time every day. Following administration, rinse mouth with water after use (do not swallow)., 60 EA, 0 Refill(s) albuterol MDI (90 mcg/inh) CFC free inhalation aerosol: 1 puff(s), Inhalation, q4h, PRN: as needed for wheezing, 18 gram(s), 0 Refill(s) amLODIPine 5 mg oral tablet: 5 mg, 1 tab(s), Oral, qDay, 30 tab(s), 0 Refill(s) pravastatin 40 mg oral tablet: 40 mg, 1 tab(s), Oral, qDay, 30 tab(s), 0 Refill(s), No qualifying data available Problem list: No qualifying data available Histories Past Medical History: No active or resolved past medical history items have been selected or recorded. Family History: No family history items have been selected or recorded. Procedure history: No active procedure history items have been selected or recorded. Social History Social & Psychosocial Habits No Data Available . Physical Examination Vital Signs 06/21/2022 7:38 EST Temperature Temporal Artery 36.3 DegC Apical Heart Rate 93 bpm Respiratory Rate 21 br/min HI Systolic Blood Pressure Non-Invasive 176 mmHg >HHI Diastolic Blood Pressure Non-Invasive 158 mmHg >HHI Blood Pressure Method Automatic Blood Pressure Location Left arm Blood Pressure Cuff Size Large Vital Signs(last 24 hrs) Last Charted Resp Rate H 21br/min (JUN 21:38) SBPC 176mmHg (JUN 21:) DBPC 158mmHg (JUN 21:) BMI19.82 (JUN 21:) Measurements from flowsheet : Measurements 06/21/2022 7:38 EST Height 172.7 cm Admission Weight 59.1 kg Weight Method Stated Petty Body Weight 68.38 kg BSA Admission 1.7 Body Mass Index 19.82 kg/m2 General: Alert and oriented. Airway: Normal temporomandibular joint mobility. Mallampati classification: II (soft palate, fauces, uvula visible). Head: Normocephalic. Dentition Evaluation: Dentures, lower, Dentures, upper. Neck: Supple. Respiratory: Lungs are clear to auscultation. Cardiovascular: Normal rate. Heart Sounds: Normal. Gastrointestinal: Soft. Musculoskeletal Normal range of motion. Integumentary: Intact. Neurologic: Alert. Review / Management Results review: No qualifying data available , Lab results 06/21/2022 7:38 EST Designated Person #1 We May Share ERIC peter [phone] Designated Person #1 Relationship Son Height 172.7 cm Admission Weight 59.1 kg Weight Method Stated Petty Body Weight 68.38 kg BSA Admission 1.7 Body Mass Index 19.82 kg/m2 Temperature Temporal Artery 36.3 DegC Apical Heart Rate 93 bpm Respiratory Rate 21 br/min HI Systolic Blood Pressure Non-Invasive 176 mmHg >HHI Diastolic Blood Pressure Non-Invasive 158 mmHg >HHI Blood Pressure Method Automatic Blood Pressure Location Left arm Blood Pressure Cuff Size Large Oxygen Saturation 95 % Status N/A Sensory Deficits None Infectious Disease Symptoms Patient states no symptoms Infectious Disease Recent Exposure No Alcohol and Drug Use No Employee of Institutional Living No Health Care Employee No History of Exposure to TB No History of Positive Chest X-Ray for TB No History of Positive TB Skin Test No Homeless No Known Immunosuppression No Recent Immigrant No Resident of Institutional Living No Bloody Sputum No Fatigue No Fever No Loss of Appetite No Night Sweats No Persistent Cough > 3 Weeks No Weight Loss No Barriers to Learning None evident Teaching Method Explanation, Printed materials Preferred Written Language Mauritanian Preferred Spoken Language Mauritanian Information Given by Patient Patient's Current Physicians Garry Discharge To, Anticipated Home independently Prev Test Positive/Diagnosis w/COVID-19 No Current Quarantine/Isolated any Illness No Any Contact with Sick Animals/Birds No Traveled Anywhere in Last 30 Days No N/A Personal Devices, Patient Valuables None Admission Note-Nursing Procedure/Therapy Intake . Assessment and Plan [place] [employer] Anesthesiologists (ASA) physical status classification: Class III. Anesthetic Preoperative Plan Premedication: None. Anesthetic technique: MAC. Induction: intravenously. Postoperative pain management: Per surgeon. Risks discussed: nausea, vomiting, headache, sore throat, dental injury, hypotension, allergic reaction, serious complications. Informed consent: signed by patient. Digitally Signed by RAMILA BARNES on 06/21/2022 07:46 AM [facility] course Narrative Note Date & Type Note Facility Hospital course Narrative No data available for this section [facility] Summary Purpose Family History No Family History Records Found Advance Directives No Advanced Directives Records Found Additional Source Comments Care Team (unrecognized sect ion and content) Care Team Personnel Name: NORMAN CASTAÑEDA MD Member Role: Primary Care Physician Address: Address: [facility] [place] [address]- Care Team Related Persons Name: WENDY RUDI Address: [address] [place] [address] (unrecognized sect ion and content) No Status Records Found INFORMATION SOURCE (unrecogn ized section and content) DATE CREATED AUTHOR 06/25/2022 [facility] ([place]) FOR RECORDS PERTAINING TO PATIENTS WHO ARE OR HAVE BEEN ENROLLED IN A CHEMICAL DEPENDENCY/SUBSTANCEABUSE PROGRAM, SOME INFORMATION MAY BE OMITTED. This clinical summary was aggregated from multiple sources. Caution should be exercised in using it in the provision of clinical care. This summary normalizes information from multiple sources, and as a consequence, information in this document may materially change the coding, format and clinical context of patient data. In addition, data may be omitted in some cases. CLINICAL DECISIONS SHOULD BE BASED ON THE PRIMARY CLINICAL RECORDS. [facility]. provides no warranty or guarantee of the accuracy or completeness of information in this document.
[2024-04-20 10:28] LABS: Absolute Lymphocyte Count 1.54 X10^3/uL (0.83-4.51); Absolute Neutrophil Count 8.9 X10^3/uL (2.0-7.7); Basophil# 0.05 X10^3/uL; Basophil% 0.4 % (0-1); Eosinophil# 0.22 X10^3/uL; Eosinophils% 1.9 % (0-5); Hematocrit 42.3 % (40-54); Lymphocyte # 1.54 X10^3/ul (0.83-4.51); Lymphocyte % 13.4 % (19-41); Mean Corp Hgb Conc 33.1 g/dL (32-36); Mean Corpuscular Hgb 29.9 pg (27.0-32.0); Mean Corpuscular Volume 90.2 fL (80-94); Mean Platelet Vol. 9.8 fl (6.2-12.0); Monocyte# 0.74 X10^3/uL; Monocyte% 6.5 % (0-10); NRBC Flagged by Analyzer 0 % (0-5); Neutrophil # 8.85 X10^3/uL (2.7-7.7); Neutrophil % 77.3 % (47-70); Platelet Count 312 K/mm3 (150-450); RBC Distribution Width CV 12.3 % (11.6-14.6); RBC Distribution Width SD 39.9 fl (35.1-43.9); Red Blood Count 4.69 M/mm3 (4.6-6.2); White Blood Count 11.5 K/mm3 (4.4-11.0)
[2024-04-20 11:12] LABS: ALB/GLOB Ratio 1.2 RATIO (0.9-2.4); AST(SGOT) 18 U/L (15-37); Alanine Aminotransfer ALT/SGPT 18 U/L (16-61); Albumin, Serum 3.8 g/dL (3.2-5.0); Alkaline Phosphatase 89 U/L (45-117); Anion Gap 5 (5-15); BUN 18 mg/dL (7-18); BUN/Creat Ratio 12.8 RATIO (10-20); Calcium,Total 9.5 mg/dL (8.5-10.1); Chloride 104 mmol/L (98-107); Creatinine, Serum 1.41 mg/dL (0.70-1.30); EST Glomerular Filtration Rate 51 mL/min (>60); Est Glom Filt Rate - Afr Amer 61 mL/min (>60); Globulin 3.3 g/dL (2.2-4.2); Glucose 97 mg/dL (74-106); Potassium 4.8 mmol/L (3.5-5.1); Protein, Total 7.1 g/dL (6.4-8.2); Sodium Level 137 mmol/L (136-145)
[2024-04-20 11:16] LABS: Vitamin D,25 Hydroxy 35.3 ng/mL
== END | disposition home or self-care (01) ==
PROVIDERS: PCP Family Medicine Geriatric Medicine; Visit Provider Family Medicine Geriatric Medicine
DX: I10 Essential (primary) hypertension (principal); E55.9 Vitamin D deficiency, unspecified
CPT/HCPCS: 36415; 80053; 82306; 84443; 85025

== ENCOUNTER → 2024-05-09 | Outpatient (CLI) | payer MEDICARE, OTHER, SELFPAY ==
[2024-05-09 10:41] LABS: Albumin, Serum 3.5 g/dL (3.2-5.0); BUN 18 mg/dL (7-18); BUN/Creat Ratio 13.5 RATIO (10-20); Calcium,Total 9.1 mg/dL (8.5-10.1); Chloride 106 mmol/L (98-107); Creatinine, Serum 1.33 mg/dL (0.70-1.30); EST Glomerular Filtration Rate 54 mL/min (>60); Est Glom Filt Rate - Afr Amer 66 mL/min (>60); Glucose 118 mg/dL (74-106); Phosphorus 2.8 mg/dL (2.5-4.9); Potassium 4.8 mmol/L (3.5-5.1); Sodium Level 137 mmol/L (136-145)
== END | disposition home or self-care (01) ==
LOC: POLAB3 09:59
PROVIDERS: PCP Family Medicine Geriatric Medicine; Visit Provider Internal Medicine Nephrology
DX: N17.9 Acute kidney failure, unspecified (principal)
CPT/HCPCS: 36415; 80069

== ENCOUNTER → 2024-10-17 | Outpatient (CLI) | payer MEDICARE, OTHER, SELFPAY ==
[2024-10-17 12:50] LABS: Absolute Lymphocyte Count 1.26 X10^3/uL (0.83-4.51); Absolute Neutrophil Count 7.8 X10^3/uL (2.0-7.7); Basophil# 0.04 X10^3/uL; Basophil% 0.4 % (0-1); Eosinophil# 0.13 X10^3/uL; Eosinophils% 1.3 % (0-5); Hemoglobin 13.7 g/dL (13.0-16.5); Lymphocyte # 1.26 X10^3/ul (0.83-4.51); Lymphocyte % 12.9 % (19-41); Mean Corp Hgb Conc 33.4 g/dL (32-36); Mean Corpuscular Volume 89.7 fL (80-94); Mean Platelet Vol. 9.6 fl (6.2-12.0); Monocyte# 0.52 X10^3/uL; Monocyte% 5.3 % (0-10); NRBC Flagged by Analyzer 0 % (0-5); Neutrophil # 7.75 X10^3/uL (2.7-7.7); Neutrophil % 79.6 % (47-70); Platelet Count 303 K/mm3 (150-450); RBC Distribution Width CV 12.4 % (11.6-14.6); RBC Distribution Width SD 40.7 fl (35.1-43.9); Red Blood Count 4.57 M/mm3 (4.6-6.2); White Blood Count 9.8 K/mm3 (4.4-11.0)
--- NOTE | 2024-10-17 13:05 | CT_ITS ---
PROCEDURE: ABDOMEN/PELVIS WITH CONTRAST 10/17/2024 REASON FOR EXAM: R INGUINAL HERNIA TECHNIQUE: Abdomen and pelvis CT with intravenous contrast. Coronal and Sagittal reconstruction series were provided. PATIENT PREPARATION: Per protocol ORAL CONTRAST TYPE: None. CONTRAST: Isovue-300 VOLUME: 100 mL One or more dose reduction techniques were used (e.g., Automated exposure control, adjustment of the mA and/or kV according to patient size, use of iterative reconstruction technique. RADIATION DOSE SUMMARY: CTDlvol: 11 mGy DLP: 437.49 mGycm COMPARISON: None FINDINGS: Lung bases: Minimal linear scarring at the lung bases. Small calcified granuloma in the right lower lobe. Liver: Normal size. No mass. Gallbladder: Unremarkable Spleen: Normal size. Pancreas: Normal size without evidence of mass surrounding inflammation or ductal dilation. Adrenals: Unremarkable Kidneys: Mild degree of bilateral cortical thinning. 2.2 cm cyst in the inferior aspect of the right kidney. Small left renal cysts. The largest measures 2 cm. Bladder: Mild degree of diffuse bladder wall thickening. Cystitis should be ruled out. Heterogeneous enlargement of the prostate measuring 3.4 cm by 4 cm. This causes indentation of the bladder base. Bowel: Colonic diverticulosis without diverticulitis. Appendix: Unremarkable Lymph nodes: Unremarkable Vasculature: Mild diffuse atherosclerotic calcifications of the abdominal aorta and the major visceral branches including the celiac artery, superior mesenteric artery and both renal arteries. Are noted. Peritoneum / Retroperitoneum: There is a 3.3 cm x 4.5 cm density in the right scrotum. This may represent the palpable lump which represents a testicle. Small right inguinal hernia containing fat. Bones: Degenerative changes of the spine. CT/Abdomen/Pelvis WITH Contrast IMPRESSION: Bilateral renal cysts and mild renal atrophy. Diffuse bladder wall thickening with heterogeneous enlargement of the prostate and bladder indentation. Small right inguinal hernia containing fat. There is elevation of the right te sticle. [facility]
[2024-10-17 13:36] LABS: ALB/GLOB Ratio 1.7 RATIO (0.9-2.4); AST(SGOT) 26 U/L (<=37); Alanine Aminotransfer ALT/SGPT 19 U/L (<=46); Albumin, Serum 4.3 g/dL (3.4-4.8); Alkaline Phosphatase 80 U/L (40-129); Anion Gap 10 (5-15); BUN 13 mg/dL (4-19); BUN/Creat Ratio 9.9 RATIO (10-20); Chloride 100 mmol/L (98-108); Creatinine, Serum 1.33 mg/dL (0.70-1.20); EST Glomerular Filtration Rate 52 (>60); Globulin 2.5 g/dL (2.2-4.2); Glucose 103 mg/dL (70-99); Potassium 5.8 mmol/L (3.3-5.1); Protein, Total 6.8 g/dL (5.9-8.4); Sodium Level 135 mmol/L (133-145); Total Bilirubin 0.32 mg/dL (0.00-1.30); Vitamin D,25 Hydroxy 40.8 ng/mL (30-100)
== END | disposition home or self-care (01) ==
PROVIDERS: PCP Family Medicine Geriatric Medicine; Referring Provider Family Medicine Geriatric Medicine; Visit Provider Family Medicine Geriatric Medicine
DX: K40.90 Unilateral inguinal hernia, without obstruction or gangrene, not specified as recurrent (principal); I10 Essential (primary) hypertension; E55.9 Vitamin D deficiency, unspecified
CPT/HCPCS: 36415; 74177; 80053; 82306; 84443; 85025; Q9967

== ENCOUNTER → 2024-10-24 | Outpatient (CLI) | payer MEDICARE, OTHER, SELFPAY ==
[2024-10-24 14:05] LABS: Absolute Lymphocyte Count 1.34 X10^3/uL (0.83-4.51); Absolute Neutrophil Count 5.2 X10^3/uL (2.0-7.7); Basophil# 0.04 X10^3/uL; Basophil% 0.6 % (0-1); Eosinophil# 0.19 X10^3/uL; Eosinophils% 2.6 % (0-5); Hematocrit 39.3 % (40-54); Hemoglobin 12.9 g/dL (13.0-16.5); Lymphocyte # 1.34 X10^3/ul (0.83-4.51); Lymphocyte % 18.5 % (19-41); Mean Corp Hgb Conc 32.8 g/dL (32-36); Mean Corpuscular Hgb 29.5 pg (27.0-32.0); Mean Corpuscular Volume 89.7 fL (80-94); Mean Platelet Vol. 9.6 fl (6.2-12.0); Monocyte# 0.51 X10^3/uL; NRBC Flagged by Analyzer 0 % (0-5); Neutrophil # 5.15 X10^3/uL (2.7-7.7); Neutrophil % 71.2 % (47-70); Platelet Count 301 K/mm3 (150-450); RBC Distribution Width CV 12.4 % (11.6-14.6); RBC Distribution Width SD 40.6 fl (35.1-43.9); Red Blood Count 4.38 M/mm3 (4.6-6.2); White Blood Count 7.2 K/mm3 (4.4-11.0)
[2024-10-24 14:37] LABS: ALB/GLOB Ratio 1.7 RATIO (0.9-2.4); AST(SGOT) 29 U/L (<=37); Alanine Aminotransfer ALT/SGPT 17 U/L (<=46); Albumin, Serum 4.1 g/dL (3.4-4.8); Alkaline Phosphatase 78 U/L (40-129); Anion Gap 10 (5-15); BUN 15 mg/dL (4-19); BUN/Creat Ratio 12.4 RATIO (10-20); Calcium,Total 9.5 mg/dL (7.6-11.0); Carbon Dioxide 23.4 mmol/L (21.0-32.0); Chloride 103 mmol/L (98-108); Creatinine, Serum 1.24 mg/dL (0.70-1.20); EST Glomerular Filtration Rate 57 (>60); Globulin 2.4 g/dL (2.2-4.2); Glucose 99 mg/dL (70-99); Protein, Total 6.5 g/dL (5.9-8.4); Sodium Level 136 mmol/L (133-145); Total Bilirubin 0.37 mg/dL (0.00-1.30)
[2024-10-24 14:40] LABS: Prothrombin Time (Protime)PT. 13.4 SECONDS (11.7-14.9)
== END | disposition home or self-care (01) ==
LOC: LAB 13:37
PROVIDERS: PCP Family Medicine Geriatric Medicine; Referring Provider Family Medicine Geriatric Medicine; Visit Provider Family Medicine Geriatric Medicine
DX: Z01.818 Encounter for other preprocedural examination (principal); I10 Essential (primary) hypertension
CPT/HCPCS: 36415; 80053; 85025; 85610

== ENCOUNTER 2024-11-12 08:48 | Day surgery (SDC) | payer MEDICARE, OTHER, SELFPAY ==
--- NOTE | 2024-10-29 15:36 | PAT.ANE_ITS ---
Pre-Assessment Diagnosis/Proposed Procedure Planned Operative Procedure(s): (R) Lap Robotic Inguinal Hernia with mesh Anesthesia History Anesthesia History - customer service officer: Anesthesia History - customer service officer Hx Hospitalization No 10/29/24 14:14 Any Problems With Anesthesia No 10/29/24 14:14 Cholinesterase deficiency No 10/29/24 14:14 You/Your Family Experience No 10/29/24 14:14 fever (hyperthermia) with Relationship Recent Exposure to Contagious Disease Does patient have nerve No 10/29/24 14:14 stimulator Patient instructed to have device shut off --Does patient have Pacemaker or ICD? When Was Last Pacemaker Check QUESTION #4 FULL TEXT: You/Your Family Experience fever (hyperthermia) with Anesthesia Last Oral Intake Last Oral intake: Last Oral Intake NPO since Meds taken in AM with sips of water? Meds patient instructed to take am of surgery PONV PONV - customer service officer: PONV - customer service officer Female No 10/29/24 14:14 HX of Motion Sickness No 10/29/24 14:14 HX of N/V After Surgery No 10/29/24 14:14 Non-Smoker Yes 10/29/24 14:14 Duration of Surgery greater Yes 10/29/24 14:14 than 60 minutes Number of Risk Factors 2 10/29/24 14:14 PONV Score Moderate Risk 10/29/24 14:14 Height & Weight Height & Weight: Anesthesia: Height & Weight Height 5 ft 8 in 10/23/24 09:07 Respiratory Assessment Respiratory Assessment - customer service officer: Respiratory Tract Infection Hx - customer service officer Hx Respiratory Tract Infection No 10/29/24 14:14 STOP Sleep Apnea STOP Sleep Apnea - customer service officer: STOP Sleep Apnea - customer service officer Hx Hypertension Yes: PER PT, CONTROLLED ON 10/29/24 14:14 MEDS Hx Sleep Apnea No 10/29/24 14:14 CPAP No 09/07/21 08:27 BIPAP No 09/07/21 08:27 Do you snore loudly (louder No 10/29/24 14:14 than talking or can be heard Do you often feel tired/ No 10/29/24 14:14 fatigued/ sleepy during daytime? Has anyone observed you stop No 10/29/24 14:14 breathing during sleep? STOP Results Negative 10/29/24 14:14 QUESTION #5 FULL TEXT : Do you snore loudly (louder than talking or can be heard through closed doors)? Tobacco Use History Tobacco Use History - customer service officer: Tobacco Use History - customer service officer Tobacco Use Smoking Status Former smoker 10/29/24 14:14 Hx Tobacco Use No 10/29/24 14:14 Years Smoking Packs Smoked per Day Smoking Cessation Date was No - quit smoking greater 10/29/24 14:14 within the last 15 years than 15 years ago Hx Smoking Cessation Date Hx Smoking Cessation Counseling Hematologic Medial History Hematologic Hx - customer service officer: Hematologic Medical Hx - jacquard plate maker Hx of Blood Transfusion No 10/29/24 14:14 Hx of Transfusion in last 3 No 10/29/24 14:14 Months Date of Last Transfusion (if within last 3 months) Ever experience any problems No 10/29/24 14:14 with transfusion(s)? Specify any problems Hx of Preganancy in last 3 N/A 10/29/24 14:14 Months Nurse Filling Out Transfusion MGRIFFITH 10/29/24 14:14 & Questions: Date: 10/29/24 10/29/24 14:14 Time: 14:17 10/29/24 14:14 Patient unable to answer at this time (ie. confused, unrespo /Reproduction History /Reproductive History - customer service officer: /Reproductive Hx- customer service officer Hx Now Gestational Age (in weeks): EDC: Hx Hx Para Hx Section SAB PFSH Medical History (Updated 10/29/24 @ 14:25 by Myra Lucero) Wears glasses Wears dentures Cancer High cholesterol Easy bruising History of diverticulitis Chronic cough Shortness of breath on exertion COPD (chronic obstructive pulmonary disease) Hypertension Former smoker Hypertension Lung nodule COPD (chronic obstructive pulmonary disease) Home Medications ?Medication ?Instructions ?Recorded ?Last Taken ?Type amlodipine 5 mg tablet (Norvasc) 5 mg PO DAILY 6 06/30/16 History albuterol 90 mcg/actuation aerosol 90 mcg inhalation P RN PRN WHEEZING 09/07/21 Unknown History inhaler fluticasone fur. 100 mcg-umeclid 1 inh inhalation RILEY Y 09/07/21 Unknown History 62.5 mcg-vilant 25 mcg inhalat.powder (Trelegy Ellipta) pravastatin 40 mg tablet 40 mg PO QHS 03/07/22 Unknow n History albuterol sulfate 5 mg/mL(0.5 %) 2.5 mg inhalation Q6H 11/14/23 Unknown History solution for nebulization metoprolol succinate 25 mg 12.5 mg PO QHS 11/14/23 Unk nown History tablet,extended release 24 hr aspirin 81 mg tablet,delayed 81 mg PO QDAY 10/23/24 Un known History release (Adult Low Dose Aspirin) multivitamin 1 tab PO QAM 10/23/24 Unknow n History Allergy/AdvReac Type Severity Reaction Status Date / Time No Known Allergies Allergy Verified 10/29/24 14:08 Family History (Updated 10/23/24 @ 09:07 by Lima Lynch) Father CVA (cerebral vascular accident) Hypertension Brother Diabetes Surgical History (Updated 10/29/24 @ 14:29 by Myra Lucero) History of cataract extraction History of lung biopsy History of colonoscopy History of appendectomy Social History Smoking Status: Former smoker Tobacco: How many years used: 25 second hand exposure: No alcohol intake: never substance use type: does not use what type of physical activity do you participate in: other details: golf frequency: 1-2 times per week krystal/nondenominational: [employer] seatbelt use: always do you feel safe at home: Yes Audit: Pertinent Findings Pertinent Findings EKG Perinent findings: 06/30/2016. Normal sinus rhythm 61 bpm. Normal EKG. Recommendation Anesthesia Recommendation Anesthesia recommendation: OPTIMIZED for anesthesia
[2024-11-12] VITALS (11 sets, daily range): BP systolic 126–177; BP diastolic 54–83; PULSE 60–79; RESP 16–20; TEMP 36.5–37; O2SAT 92–99; BMI 19.0
[2024-11-12] MEDS: Lactated Ringers 1,000 ML 15 ML IV ×2 (09:35→13:44)
--- NOTE | 2024-11-12 10:17 | PRE.ANES_ITS ---
ASA Classification* ASA Classification ASA Classification: 2 Assessment & Plan Anesthesia* Anesthesia Assessment Anesthesia Assessment: Discussed sedation and/or anesthesia options, risks, benefits, and alternatives with patient/parents/legal guardian/POA. Questions invited. The patient/parents/legal guardian/POA seems to understand and agrees to proceed with anesthesia plan. Reviewed the physical assessment, medical history, allergy history and patient home medications list prior to surgery/procedure/anesthetic and documented any changes. Performed airway and anesthesia risk assessments. Anesthesia Type Anesthesia Type: General History Source History Obtained from:: Patient and Chart Anesthesia Focused Assessment* Temperature: 97.9 F Pulse Rate: 68 Blood Pressure: 177/83 Respiratory Rate: 18 Pulse Ox: 97 Oxygen Delivery Method: Room Air Airway Assessment Mouth opens: >3 cm Mallampati Score: I Teeth Condition: Dentures (Patient has full upper and lower dentures. They will come out.) Neck Range of motion (ROM): Limited ROM (Slight decrease in extension) Focused Labs Anesthesia Preop lab: CBC WBC 7.2 K/mm3 (4.4-11.0) 10/24/24 13:41 10/24/24 RBC 4.38 M/mm3 (4.6-6.2) L 10/24/24 13:41 10/24/24 Hgb 12.9 g/dL (13.0-16.5) L 10/24/24 13:41 5 Hct 39.3 % (40-54) L 10/24/24 13:41 10/24/24 Plt Count 301 K/mm3 (150-450) 10/24/24 13:41 10/24/24 CHEMISTRY Potassium 5.0 mmol/L (3.3-5.1) 10/24/24 13:41 10/24/24 Sodium 136 mmol/L (133-145) 10/24/24 13:41 10/24/24 Phosphorus 2.8 mg/dL (2.5-4.9) 05/09/24 10:01 05/09/24 BUN 15 mg/dL (4-19) 10/24/24 13:41 10/24/24 Creatinine 1.24 mg/dL (0.70-1.20) H 10/24/24 13:41 Glucose 99 mg/dL (70-99) 10/24/24 13:41 10/24/24 TSH 3.450 uIU/mL (0.300-4.200) 10/17/24 11:35 10/02 12/26 COAG PT 13.4 SECONDS (11.7-14.9) 10/24/24 13:41 Pre-Assessment Diagnosis/Proposed Procedure Planned Operative Procedure(s): (R) Lap Robotic Inguinal Hernia with mesh Anesthesia History 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 When Was Last Pacemaker Check QUESTION #4 FULL TEXT: You/Your Family Experience fever (hyperthermia) with Anesthesia Last Oral Intake Last Oral intake: Last Oral Intake NPO since 18:00 11/12/24 09:22 Meds taken in AM with sips of Yes 11/12/24 09:22 water? Meds patient instructed to take am of surgery Any additional information?: Yes Meds taken in AM with sips of water?: Yes PONV PONV - electrical & instrumentation supervisor: PONV - electrical & instrumentation supervisor Female No 10/29/24 14:14 HX of Motion Sickness No 10/29/24 14:14 HX of N/V After Surgery No 10/29/24 14:14 Non-Smoker Yes 10/29/24 14:14 Duration of Surgery greater Yes 10/29/24 14:14 than 60 minutes Number of Risk Factors 2 10/29/24 14:14 PONV Score Moderate Risk 10/29/24 14:14 Height & Weight Height & Weight: Anesthesia: Height & Weight Height 5 ft 8 in 11/12/24 09:22 Weight: 56.7 kg 11/12/24 09:22 Body Mass Index (BMI) 19.0 11/12/24 09:22 Respiratory Assessment Respiratory Assessment - electrical & instrumentation supervisor: Respiratory Tract Infection Hx - electrical & instrumentation supervisor Hx Respiratory Tract Infection No 10/29/24 14:14 Any additional information?: Yes Hx Respiratory Tract Infection: Yes (Patient has chronic cough. No acute symptoms.) STOP Sleep Apnea STOP Sleep Apnea - electrical & instrumentation supervisor: STOP Sleep Apnea - electrical & instrumentation supervisor Hx Hypertension Yes: PER PT, CONTROLLED ON 10/29/24 14:14 MEDS Hx Sleep Apnea No 10/29/24 14:14 CPAP No 09/07/21 08:27 BIPAP No 09/07/21 08:27 Do you snore loudly (louder No 10/29/24 14:14 than talking or can be heard Do you often feel tired/ No 10/29/24 14:14 fatigued/ sleepy during daytime? Has anyone observed you stop No 10/29/24 14:14 breathing during sleep? STOP Results Negative 10/29/24 14:14 QUESTION #5 FULL TEXT : Do you snore loudly (louder than talking or can be heard through closed doors)? Tobacco Use History Tobacco Use History - electrical & instrumentation supervisor: Tobacco Use History - electrical & instrumentation supervisor Tobacco Use Smoking Status Former smoker 10/29/24 14:14 Hx Tobacco Use No 10/29/24 14:14 Years Smoking Packs Smoked per Day Smoking Cessation Date was No - quit smoking greater 10/29/24 14:14 within the last 15 years than 15 years ago Hx Smoking Cessation Date Hx Smoking Cessation Counseling Hematologic Medial History Hematologic Hx - electrical & instrumentation supervisor: Hematologic Medical Hx - sock liner Hx of Blood Transfusion No 10/29/24 14:14 Hx of Transfusion in last 3 No 10/29/24 14:14 Months Date of Last Transfusion (if within last 3 months) Ever experience any problems No 10/29/24 14:14 with transfusion(s)? Specify any problems Hx of Preganancy in last 3 N/A 10/29/24 14:14 Months Nurse Filling Out Transfusion MGRIFFITH 10/29/24 14:14 & Questions: Date: 10/29/24 10/29/24 14:14 Time: 14:17 10/29/24 14:14 Patient unable to answer at this time (ie. confused, unrespo /Reproduction History /Reproductive History - electrical & instrumentation supervisor: /Reproductive Hx- electrical & instrumentation supervisor Hx Now Gestational Age (in weeks): EDC: Hx Hx Para Hx Section SAB Active Medications Active Medications: Current Medications Generic Name Dose Route Start Last Admin Trade Name Freq PRN Reason Stop Dose Admin Cefazolin Sodium 2 gm/ Sodium 110 mls @ 150 mls/hr 11/12/24 10:35 Chloride IV 11/12/24 11:18 INTRAOP ONE Lactated Ringer's 1,000 mls @ 15 mls/hr 11/12/24 09:15 11/12/24 09:35 IV 15 mls/hr .Q48H CHITO Administration PFSH Medical History Wears glasses Wears dentures Cancer High cholesterol Easy bruising History of diverticulitis Chronic cough Shortness of breath on exertion COPD (chronic obstructive pulmonary disease) Hypertension Former smoker Hypertension Lung nodule COPD (chronic obstructive pulmonary disease) Home Medications ?Medication ?Instructions ?Recorded ?Last Taken ?Type amlodipine 5 mg tablet (Norvasc) 5 mg PO DAILY 6 11/12/24 08:00 History albuterol 90 mcg/actuation aerosol 90 mcg inhalation P RN PRN WHEEZING 09/07/21 Unknown History inhaler fluticasone fur. 100 mcg-umeclid 1 inh inhalation RILEY Y 09/07/21 11/12/24 History 62.5 mcg-vilant 25 mcg inhalat.powder (Trelegy Ellipta) pravastatin 40 mg tablet 40 mg PO QHS 09/07/21 Unknow n History albuterol sulfate 5 mg/mL(0.5 %) 2.5 mg inhalation Q6H 11/14/23 Unknown History solution for nebulization metoprolol succinate 25 mg 12.5 mg PO QHS 11/14/2305/28 History tablet,extended release 24 hr aspirin 81 mg tablet,delayed 81 mg PO QDAY 10/23/24 History release (Adult Low Dose Aspirin) multivitamin 1 tab PO QAM 10/23/24 Unknow n History Allergy/AdvReac Type Severity Reaction Status Date / Time No Known Allergies Allergy Verified 11/12/24 09:21 Family History Father CVA (cerebral vascular accident) Hypertension Brother Diabetes Surgical History History of cataract extraction History of lung biopsy History of colonoscopy History of appendectomy Social History Smoking Status: Former smoker Tobacco: How many years used: 25 second hand exposure: No alcohol intake: never substance use type: does not use what type of physical activity do you participate in: other details: golf frequency: 1-2 times per week 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
--- NOTE | 2024-11-12 10:17 | PCM.HP.STD ---
HPI - General General Date of Admission: 11/12/24 Date of Service: 11/12/24 Chief Complaint: Right inguinal hernia HPI Narrative BERNABE NGUYEN, is a 83 M who presents today for elective robotic right inguinal hernia repair with mesh. Patient was seen in the office recently with just comfort and bulge in the right groin. He was diagnosed with a right inguinal hernia. He is active physically for his age and wished to have this repaired as this was interfering with his daily activities. We discussed the details of the planned procedure and he wishes to proceed. [facility] Medical History (Updated 10/29/24 @ 14:25 by Myra Lucero) Wears glasses Wears dentures Cancer High cholesterol Easy bruising History of diverticulitis Chronic cough Shortness of breath on exertion COPD (chronic obstructive pulmonary disease) Hypertension Former smoker Hypertension Lung nodule COPD (chronic obstructive pulmonary disease) Home Medications ?Medication ?Instructions ?Recorded ?Last Taken ?Type amlodipine 5 mg tablet (Norvasc) 5 mg PO DAILY 06/30/16 11/12/24 08:00 History albuterol 90 mcg/actuation aerosol 90 mcg inhalation PRN PRN WHEEZING 09/07/21 Unknown History inhaler fluticasone fur. 100 mcg-umeclid 1 inh inhalation DAILY 09/07/21 11/12/24 History 62.5 mcg-vilant 25 mcg inhalat.powder (Trelegy Ellipta) pravastatin 40 mg tablet 40 mg PO QHS 09/07/21 Unknown History albuterol sulfate 5 mg/mL(0.5 %) 2.5 mg inhalation Q6H 11/14/23 Unknown History solution for nebulization metoprolol succinate 25 mg 12.5 mg PO QHS 11/14/23 11/11/24 History tablet,extended release 24 hr aspirin 81 mg tablet,delayed 81 mg PO QDAY 10/23/24 11/11/24 History release (Adult Low Dose Aspirin) multivitamin 1 tab PO QAM 10/23/24 Unknown History Allergy/AdvReac Type Severity Reaction Status Date / Time No Known Allergies Allergy Verified 11/12/24 09:21 Family History (Updated 10/23/24 @ 09:07 by Lima Lynch) Father CVA (cerebral vascular accident) Hypertension Brother Diabetes Surgical History (Updated 10/29/24 @ 14:29 by Myra Lucero) History of cataract extraction History of lung biopsy History of colonoscopy History of appendectomy Social History Smoking Status: Former smoker Tobacco: How many years used: 25 second hand exposure: No alcohol intake: never substance use type: does not use what type of physical activity do you participate in: other details: golf frequency: 1-2 times per week krystal/uatsdin: [employer] seatbelt use: always do you feel safe at home: Yes Vital Signs Vital Signs Vital Signs: 11/12/24 09:22 11/12/24 09:22 Temperature 97.9 F Temperature Source Temporal Pulse Rate 68 Respiratory Rate 18 Respiratory Pattern Normal Blood Pressure 177/83 H Blood Pressure Mean 114 Blood Pressure Source Monitor Blood Pressure Position Semi-Fowlers Blood Pressure Location Right Arm Pulse Ox 97 Oxygen Delivery Method Room Air Weight Weight: 125 lb 0.034 oz Body Mass Index (BMI) 19.0 Physical Exam Const alert, oriented x3 and no apparent distress Assessment & Plan Assessment/Plan (1) Inguinal hernia: PLAN: Plan The patient is an 83-year-old male who presents today for elective repair of a right inguinal hernia robotically. We discussed the details of the planned procedure and he wishes to proceed. The surgery began momentarily
[2024-11-12] MEDS: Gentamicin 80 MG/2 ML Vial (10:45)
[2024-11-12] MEDS: Cefazolin 2 GM in 0.9% Normal Saline (100mL Bag) 100 ML IV (10:52)
--- NOTE | 2024-11-12 11:44 | DCINST_ITS ---
Discharge Instructions Diet Discharge Diet: Light diet - advance as tolerated Activity Discharge Activity: Return to Normal Activity and May Shower May shower in (days): 1 Ice area for (Minutes): 30 Lifting Restrictions: No lifting over 20 pounds for 6 weeks Dressing / Incision Call your doctor if your incision/area has: Continuous Slow Oozing, Sudden In creased Bleeding, Increased Pain/ Swelling, Increased Redness, Foul Smelling Discharge and Swelling at the incision site Call your doctor if you observe: Fever of 101 or Higher Cleanse incision/area with: Soap & Water Follow Up Care Please Follow Up With: Pierce Peralta MD When: 2 weeks. Please call office for appointment Test Results: Test results from this visit will be discussed in further detail at your follow- up appointment, if applicable. Discharge Plan Admission Primary Reason for Your Visit: Right inguinal hernia repair Attending Provider: Pierce Peralta Primary Care Provider: Albino Cedeno Chi Instructions Print Language: Liberian Discharge Orders/Prescriptions Prescriptions: New oxycodone-acetaminophen [Percocet] 5-325 mg tablet 1 tab PO Q8H PRN (Reason: pain) 3 Days Qty: 10 0RF Continued metoprolol succinate 25 mg tablet extended release 24 hr 12.5 mg PO QHS albuterol sulfate 5 mg/mL solution for nebulization 2.5 mg inhalation Q6H aspirin [Adult Low Dose Aspirin] 81 mg tablet,delayed release (DR/EC) 81 mg PO QDAY multivitamin Tablet 1 tab PO QAM amlodipine [Norvasc] 5 MG tablet 5 mg PO DAILY pravastatin 40 mg Tablet 40 mg PO QHS albuterol 90 mcg/actuation Aerosol 90 mcg INHALATION PRN PRN (Reason: WHEEZING) Trelegy Ellipta 100-62.5-25 mcg Blister With Device 1 inh INHALATION DAILY Referrals / Follow Up: Albino Cedeno Chi, MD [Primary Care Provider] - Disposition Disposition (needs filled in before D/C Order can be placed): Home, Self Care
--- NOTE | 2024-11-12 11:46 | PCM.OPRPT ---
Procedures Digestive [id number]-49xxx: 62428 Lap ing hernia repair init Operative Report (Standard) Operative Information Date of Procedure: 11/12/24 Pre-Operative Diagnosis: Right inguinal hernia Post-Operative Diagnosis: Right inguinal hernia Surgery/Procedure Performed: Robotic right inguinal hernia repair with mesh ferry pilot: Yes Cigarette Seller: Jolene Herndon Tasks completed by photographer assistant: Closing, Trocar and Other Additional distribution center assistant?: No Type of Anesthesia: General and Local RN Documented Start/Stop Times: Operation Date: 11/12/24 10:35 Case Time Into Pre-Op 11/12/24 09:10 Out of Pre-Op 11/12/24 10:37 Anesthesia Start 11/12/24 10:41 Into Room 11/12/24 10:41 Procedure Start 11/12/24 10:59 Procedure Start Time: 10:59 Procedure Stop Time: 11:47 Select all DRAINS/GRAFTS/IMPLANTS that apply: Prosthetic device Prosthetic device details: ProGrip 10 x 15 cm mesh Special Medications: Ancef 2 g IV preop Estimated Blood Loss: Minimal Specimen collected: No Description of surgery: The patient is a an 83-year-old male who recently presented to my office with a right-sided inguinal hernia. There was no evidence of left inguinal hernia on exam. He was very active for his age. This hernia was interrupting his daily functioning preventing him from doing some of the activities that he likes to enjoy. He mows his own lawn and plays golf. I offered him a robotic right inguinal hernia repair with mesh. We discussed the details of the planned procedure including the risks benefits and alternatives. He wished to proceed. The patient was brought the operating room today following informed consent. Preoperative antibiotics were given and a timeout was performed. He was placed supine the operative table. The abdomen was prepped and draped in usual sterile manner after general anesthesia was induced. His arms were comfortably tucked at his side. A 8 mm incision was made just above the umbilicus through which a 5 mm trocar was placed optically. This was placed without incident. A 5 mm 0 degree scope was inserted. There were no signs of bowel or vascular injury. Next two 8 mm trocars were placed. 1 was placed on the right side of the abdomen and the other was placed on the left side of the abdomen. These were all at the same level as the umbilicus. These were all placed without difficulty. The robot was then rolled into place and docked. Once all instruments were in place, the peritoneum overlying the right sided inguinal hernia was incised in a lateral to medial direction. There was no evidence of left inguinal hernia. This appeared to be a fairly sizable direct inguinal hernia on the right side. A subperitoneal plane was then developed very carefully. Sammy's ligament was dissected out medially. The peritoneum was extremely thin. Patient had very little subcutaneous fatty tissue. The peritoneum of the direct hernia sac was carefully reduced. A shelf of peritoneum was created inferiorly to accommodate the mesh. Once sufficient dissection was performed a ProGrip 10 x 15 cm piece of mesh was selected. This was placed in antibiotic solution. The mesh was trimmed to fit the surgical site. This was then laid into position and unrolled. The mesh laid perfectly. Once this was appropriately in position, the peritoneum was then closed in a running manner using a 6 inch V-Loc suture. I did lower the pressure to 8 mm to facilitate peritoneal closure since the peritoneum was very thin. This closed nicely the needle was removed. All counts were correct. The incisions were then closed with 4-0 Vicryl. Skin glue was applied as dressing. Local anesthetic was injected into each of the incisions. The patient was awakened from anesthesia and taken to recovery in good condition. Surgical Findings: Right sided direct inguinal hernia Complications Complications: No Admit VTE Documentation VTE Present on Admission: No VTE Mechan Device Prophylaxis: [facility] [place]'s VTE Pharm Prophylaxis ordered?: No Reason prophylaxis not ordered: Treatment Not Indicated
[2024-11-12] MEDS: Bupiv/Epi 0.25% 30 ML Vial (11:48)
--- NOTE | 2024-11-12 12:04 | PCM.POST.ANE ---
Anesthesia: Postop Eval I Current Vital Signs Temperature: 97.7 F Pulse Rate: 68 Blood Pressure: 126/70 Respiratory Rate: 20 Pulse Ox: 98 Oxygen Delivery Method: Room Air Assessment Airway patent: Yes Spontaneous unlabored respirations: Yes Mental status: Awake nausea: No Vomiting: No Anesthesia Complication: No Fluid Hydration Crystalloid volume administer (ml): 900 Total IV fluid infused: 900 Progress Note Anesthesia document: Postop Eval 1 completed: Yes
[2024-11-12] MEDS: oxyCODONE 5 MG Tablet PO (13:44)
[2024-11-12] MEDS: Acetaminophen 325 MG Tablet 650 MG PO (13:44)
--- NOTE | 2024-11-12 18:14 | POSTOPAN2_ITS ---
Anesthesia Postop Eval I Sum Postop Eval Completion status Anesthesia document: Postop Eval 1 completed: Yes Anesthesia Postop Eval I Summary Anesthesia Postop Eval I Summary: Anesthesia Postop Eval I: Assessment Summary Airway patent Yes 11/12/24 12:05 STRETCHER DRIER OPERATOR.JDEF Spontaneous unlabored Yes 11/12/24 12:05 STRETCHER DRIER OPERATOR.JDEF respirations Mental status Awake 11/12/24 12:05 STRETCHER DRIER OPERATOR.JDEF nausea No 11/12/24 12:05 STRETCHER DRIER OPERATOR.JDEF Vomiting No 11/12/24 12:05 STRETCHER DRIER OPERATOR.JDEF Anesthesia Postop Eval I: Fluid Summary Crystalloid volume administer 900 11/12/24 12:05 STRETCHER DRIER OPERATOR.JDEF (ml) Colloids volume administered ( ml) Blood Product volume administered (ml) Total IV fluid infused 900 11/12/24 12:05 STRETCHER DRIER OPERATOR.JDEF Anesthesia Postop Eval I: Summary Notes Anesthesia Complication No 11/12/24 12:05 STRETCHER DRIER OPERATOR.JDEF Anesthesia Complication Comment: Post-operative progress note Anesthesia: Postop Eval II Evaluation Mental status: Awake and Calm Pain Level: 1 nausea: No Vomiting: No Complications Anesthesia Complication: No
--- NOTE | 2024-11-12 18:14 | PCM.POSTANE2 ---
Anesthesia Postop Eval I Sum Postop Eval Completion status Anesthesia document: Postop Eval 1 completed: Yes Anesthesia Postop Eval I Summary Anesthesia Postop Eval I Summary: Anesthesia Postop Eval I: Assessment Summary Airway patent Yes 11/12/24 12:05 SOCIAL PROFESSIONALS.JDEF Spontaneous unlabored Yes 11/12/24 12:05 SOCIAL PROFESSIONALS.JDEF respirations Mental status Awake 11/12/24 12:05 SOCIAL PROFESSIONALS.JDEF nausea No 11/12/24 12:05 SOCIAL PROFESSIONALS.JDEF Vomiting No 11/12/24 12:05 SOCIAL PROFESSIONALS.JDEF Anesthesia Postop Eval I: Fluid Summary Crystalloid volume administer 900 11/12/24 12:05 SOCIAL PROFESSIONALS.JDEF (ml) Colloids volume administered ( ml) Blood Product volume administered (ml) Total IV fluid infused 900 11/12/24 12:05 SOCIAL PROFESSIONALS.JDEF Anesthesia Postop Eval I: Summary Notes Anesthesia Complication No 11/12/24 12:05 [employer]IAL PROFESSIONALS.JDEF Anesthesia Complication Comment: Post-operative progress note Anesthesia: Postop Eval II Evaluation Mental status: Awake and Calm Pain Level: 1 nausea: No Vomiting: No Complications Anesthesia Complication: No
== END 2024-11-12 14:35 | disposition home or self-care (01) ==
LOC: SDC 08:49 → AC 08:52
PROVIDERS: PCP Family Medicine Geriatric Medicine; Referring Provider Surgery; Visit Provider Surgery
PROC: (CPT 49650; principal; 2024-11-12 10:15)
DX: K40.90 Unilateral inguinal hernia, without obstruction or gangrene, not specified as recurrent (principal); J44.9 Chronic obstructive pulmonary disease, unspecified; I10 Essential (primary) hypertension; E78.00 Pure hypercholesterolemia, unspecified; Z79.51 Long term (current) use of inhaled steroids; Z79.82 Long term (current) use of aspirin; Z79.899 Other long term (current) drug therapy; Z87.891 Personal history of nicotine dependence
CPT/HCPCS: 49650; S2900; 00832; C1781; J2405

== ENCOUNTER → 2025-04-22 | Outpatient (CLI) | payer MEDICARE, OTHER, SELFPAY ==
[2025-04-22 09:22] LABS: Hematocrit 39.1 % (40-54); Hemoglobin 12.8 g/dL (13.0-16.5); Immature Granulocytes Count 0.030 X10^3/uL (0.0-0.0); Mean Corp Hgb Conc 32.7 g/dL (32-36); Mean Corpuscular Volume 90.5 fL (80-94); Mean Platelet Vol. 9.5 fl (6.2-12.0); NRBC Flagged by Analyzer 0 % (0-5); Platelet Count 297 K/mm3 (150-450); RBC Distribution Width CV 12.4 % (11.6-14.6); RBC Distribution Width SD 41.0 fl (35.1-43.9); Red Blood Count 4.32 M/mm3 (4.6-6.2); White Blood Count 11.4 K/mm3 (4.4-11.0)
[2025-04-22 09:58] LABS: AST(SGOT) 26 U/L (<=37); Alanine Aminotransfer ALT/SGPT 18 U/L (<=46); Albumin, Serum 4.0 g/dL (3.4-4.8); Alkaline Phosphatase 103 U/L (40-129); Anion Gap 9 (5-15); BUN 16 mg/dL (4-19); BUN/Creat Ratio 12.1 RATIO (10-20); Calcium,Total 9.2 mg/dL (7.6-11.0); Carbon Dioxide 27.2 mmol/L (21.0-32.0); Chloride 100 mmol/L (98-108); Globulin 2.7 g/dL (2.2-4.2); Glucose 137 mg/dL (70-99); Potassium 5.1 mmol/L (3.3-5.1); Vitamin D,25 Hydroxy 39.4 ng/mL (30-100)
[2025-04-22 17:07] LABS: Xtra Tube Kwok EXTRA TUBE
== END | disposition home or self-care (01) ==
PROVIDERS: PCP Family Medicine Geriatric Medicine; Visit Provider Family Medicine Geriatric Medicine
DX: I12.9 Hypertensive chronic kidney disease with stage 1 through stage 4 chronic kidney disease, or unspecified chronic kidney disease (principal); N18.32 Chronic kidney disease, stage 3b; E55.9 Vitamin D deficiency, unspecified
CPT/HCPCS: 36415; 80053; 82306; 84443; 85025

== ENCOUNTER 2025-04-25 14:22 | Outpatient (CLI) | payer MEDICARE, OTHER, SELFPAY ==
[2025-04-25] MEDS: 0.9% Normal Saline (1000mL) 1,000 ML 999 ML IV (14:37)
[2025-04-25] MEDS: 0.9% NaCl Peripheral Flush Adult IV (14:37)
[2025-04-25 14:38] VITALS: BP 123/95; PULSE 102; RESP 18; TEMP 36.4; O2SAT 90; BMI 18.7
[2025-04-25 15:43] VITALS: BP 150/62; PULSE 88; RESP 16
== END 2025-04-25 23:59 | disposition home or self-care (01) ==
PROVIDERS: PCP Family Medicine Geriatric Medicine; Referring Provider Family Medicine Geriatric Medicine; Visit Provider Family Medicine Geriatric Medicine
DX: E86.0 Dehydration (principal); R06.2 Wheezing; J98.8 Other specified respiratory disorders
CPT/HCPCS: 71046; 87631; 96360; A4216

== ENCOUNTER → 2025-05-01 | Outpatient (CLI) | payer MEDICARE, OTHER, SELFPAY ==
[2025-05-01 11:55] LABS: Albumin, Serum 3.9 g/dL (3.4-4.8); Anion Gap 10 (5-15); BUN 23 mg/dL (4-19); BUN/Creat Ratio 18.3 RATIO (10-20); Calcium,Total 9.2 mg/dL (7.6-11.0); Carbon Dioxide 24.4 mmol/L (21.0-32.0); Chloride 101 mmol/L (98-108); Glucose 134 mg/dL (70-99); Potassium 4.8 mmol/L (3.3-5.1)
[2025-05-01 18:22] LABS: Xtra Tube Kwok EXTRA TUBE
== END | disposition home or self-care (01) ==
PROVIDERS: PCP Family Medicine Geriatric Medicine; Visit Provider Internal Medicine Nephrology
DX: N18.32 Chronic kidney disease, stage 3b (principal)
CPT/HCPCS: 36415; 80069